=== PATIENT | male | born 1960 | race Caucasian/White ===

== ENCOUNTER 2017-08-07 15:18 | Inpatient (IN) | payer OTHER ==
[~2017-08-07] VITALS: Ht 160 cm; Wt 77.3 kg
[2017-08-07] MEDS ORDERED: NOR10 PO (16:25)
[2017-08-07] MEDS ORDERED: LISI10TA5 PO (16:25)
[2017-08-07 16:26] VITALS: BP_SYST 153
[2017-08-07 17:08] LABS: HEMATOCRIT 44.6 % (36-54); MEAN CORPUSCULAR HEMOGLOBIN 22 pg (27-31); MEAN CORPUSCULAR HGB CONC 31 % (32-36); MEAN CORPUSCULAR VOLUME 71 fL (79.0-98.0); RED BLOOD CELL COUNT(AUTO) 6.32 MIL/uL (4.2-6.2); WHITE BLOOD COUNT (AUTO) 6.2 K/uL (4.8-10.8)
[2017-08-07 17:09] LABS: BASOPHILS # (AUTO) 0.1 K/uL (0.0-0.2); BASOPHILS % (AUTO) 1.7 % (0.0-2.0); EOSINOPHILS # (AUTO) 0.3 K/uL (0.0-0.4); EOSINOPHILS % (AUTO) 4.4 % (0.0-4.0); LYMPHOCYTES # (AUTO) 1.7 K/uL (1.0-5.5); LYMPHOCYTES % (AUTO) 27.1 % (20.5-51.5); MONOCYTES # (AUTO) 0.4 K/uL (0.0-1.0); MONOCYTES % (AUTO) 6.3 % (1.7-9.3); NEUTROPHILS # (AUTO) 3.7 K/uL (1.8-7.7); NEUTROPHILS % (AUTO) 60.5 % (40.0-70.0); PLATELET COUNT (AUTO) 367 K/uL (130-430)
[2017-08-07 17:14] LABS: CALCIUM 10.1 mg/dL (8.4-11.0); CREATININE 1.09 mg/dL (0.55-1.30); POTASSIUM 3.7 mmol/L (3.5-5.1)
[2017-08-07 17:18] LABS: ALBUMIN 2.7 g/dL (3.4-4.8); TOTAL BILIRUBIN 0.3 mg/dL (0.0-1.0)
[2017-08-07] MEDS ORDERED: TEMAZEPAM 15 MG CAPSULE PO PRN (17:30)
[2017-08-07] MEDS ORDERED: ACETAMINOPHEN 325 MG TABLET PO PRN (17:30)
[2017-08-07 18:05] LABS: PROTHROMBIN TIME 9.9 SECS (9.5-12.5)
[2017-08-07] MEDS ORDERED: FUROSEMIDE 20 MG/2 ML VIAL IVP ONE (18:30)
[2017-08-07 18:46] LABS: BILIRUBIN,URINE NEGATIVE (NEGATIVE); BLOOD, URINE 2+ (NEGATIVE); CLARITY/URINE CLEAR (CLEAR); COLOR,URINE YELLOW (YELLOW); GLUCOSE,URINE NEGATIVE (NEGATIVE); KETONES,URINE NEGATIVE (NEGATIVE); LEUKOCYTE ESTERASE ,URINE NEGATIVE (NEGATIVE); NITRITE, URINE NEGATIVE (NEGATIVE); PROTEIN URINE 3+ (NEGATIVE); UROBILINOGEN,URINE 0.2 (0.2-1.0)
[2017-08-07 18:50] VITALS: BP_SYST 151
[2017-08-07 19:11] LABS: BACTERIA,URINE RARE /HPF (None Seen); WBC,URINE 0-3 /HPF (0-3)
[2017-08-07 20:05] VITALS: BP_SYST 138
[2017-08-07] MEDS: POTASSIUM CHLORIDE 20 MEQ TAB.PRT.SR PO SCH (20:36)
[2017-08-07] MEDS: FUROSEMIDE 20 MG/2 ML VIAL IVP SCH (20:37)
[2017-08-07] MEDS: ENOXAPARIN SODIUM 40 MG/0.4 ML SYRINGE SUBCUT SCH (20:39)
[2017-08-07 23:20] VITALS: BP_SYST 141
[2017-08-08 07:11] LABS: CALCIUM 9.8 mg/dL (8.4-11.0); CREATININE 1.17 mg/dL (0.55-1.30); FREE T4 (FREE THYROXINE) 0.9 ng/dL (0.6-1.6); POTASSIUM 3.7 mmol/L (3.5-5.1); THYROID STIMULATING HORMONE 2.38 uIu/mL (0.34-4.82)
[2017-08-08 07:32] VITALS: BP_SYST 146
[2017-08-08 08:04] LABS: BASOPHILS % (AUTO) 0.5 % (0.0-2.0); EOSINOPHILS # (AUTO) 0.3 K/uL (0.0-0.4); EOSINOPHILS % (AUTO) 5.7 % (0.0-4.0); HEMATOCRIT 42.3 % (36-54); LYMPHOCYTES # (AUTO) 2.1 K/uL (1.0-5.5); LYMPHOCYTES % (AUTO) 34.7 % (20.5-51.5); MEAN CORPUSCULAR HEMOGLOBIN 22 pg (27-31); MEAN CORPUSCULAR HGB CONC 31 % (32-36); MEAN CORPUSCULAR VOLUME 71 fL (79.0-98.0); MONOCYTES # (AUTO) 0.6 K/uL (0.0-1.0); MONOCYTES % (AUTO) 10.4 % (1.7-9.3); NEUTROPHILS # (AUTO) 3.1 K/uL (1.8-7.7); NEUTROPHILS % (AUTO) 48.7 % (40.0-70.0); PLATELET COUNT (AUTO) 378 K/uL (130-430); RED BLOOD CELL COUNT(AUTO) 5.97 MIL/uL (4.2-6.2); RED CELL DISTRIBUTION WIDTH 16.2 % (9.0-15.0); WHITE BLOOD COUNT (AUTO) 6.1 K/uL (4.8-10.8)
[2017-08-08] MEDS ORDERED: LISINOPRIL 10 MG TABLET (PRINIVIL) PO SCH (09:00)
[2017-08-08] MEDS ORDERED: amLODIPine BESYLATE 10 MG TABLET PO SCH (09:00)
[2017-08-08] MEDS: POTASSIUM CHLORIDE 20 MEQ TAB.PRT.SR PO SCH ×2 (09:35→20:12)
[2017-08-08] MEDS: FUROSEMIDE 20 MG/2 ML VIAL IVP SCH ×2 (09:35→20:11)
[2017-08-08 12:16] VITALS: BP_SYST 137
[2017-08-08] MEDS: CARVEDILOL 6.25 MG TABLET (COREG) PO SCH ×2 (13:45→20:12)
[2017-08-08] MEDS ORDERED: CARVEDILOL 6.25 MG TABLET (COREG) PO ONE (14:30)
[2017-08-08 16:09] VITALS: BP_SYST 140
[2017-08-08 16:22] VITALS: BP_SYST 140
[2017-08-08] MEDS ORDERED: CARV6.2554 PO (16:29)
[2017-08-08 20:00] VITALS: BP_SYST 138
[2017-08-08] MEDS: ENOXAPARIN SODIUM 40 MG/0.4 ML SYRINGE SUBCUT SCH (20:13)
[2017-08-08 23:17] LABS: BILIRUBIN,URINE NEGATIVE (NEGATIVE); BLOOD, URINE TRACE (NEGATIVE); CLARITY/URINE CLEAR (CLEAR); COLOR,URINE YELLOW (YELLOW); GLUCOSE,URINE NEGATIVE (NEGATIVE); KETONES,URINE NEGATIVE (NEGATIVE); LEUKOCYTE ESTERASE ,URINE NEGATIVE (NEGATIVE); NITRITE, URINE NEGATIVE (NEGATIVE); PROTEIN URINE 3+ (NEGATIVE); UROBILINOGEN,URINE 0.2 (0.2-1.0)
[2017-08-08 23:22] LABS: BACTERIA,URINE FEW /HPF (None Seen); RBC,URINE 0-3 /HPF (0-3)
[2017-08-08 23:23] LABS: HYALINE CASTS, URINE 0-10 /LPF (None Seen)
[2017-08-09 04:07] LABS: HEMOGLOBIN A1C 5.4 % (4.8-5.6)
== END 2017-08-08 23:25 | disposition home or self-care (01) | DRG 292 ==
LOC: SMU 15:18 → STU 16:03
PROVIDERS: ADMIT Internal Medicine; ATTEND Internal Medicine
DX: I13.0 Hypertensive heart and chronic kidney disease with heart failure and stage 1 through stage 4 chronic kidney disease, or unspecified chronic kidney disease (principal); E44.0 Moderate protein-calorie malnutrition; E87.1 Hypo-osmolality and hyponatremia; I50.9 Heart failure, unspecified; I35.1 Nonrheumatic aortic (valve) insufficiency; R80.9 Proteinuria, unspecified; N18.9 Chronic kidney disease, unspecified; N20.0 Calculus of kidney; Z87.442 Personal history of urinary calculi; Z90.49 Acquired absence of other specified parts of digestive tract; Z79.899 Other long term (current) drug therapy; Z88.2 Allergy status to sulfonamides; Z88.1 Allergy status to other antibiotic agents; Z68.30 Body mass index [BMI] 30.0-30.9, adult
CPT/HCPCS: 36415; 71045; 74018; 76770; 80048; 80053; 80061; 81000-TC; 82043; 82306; 82570; 82570-TC; 82607; 83036; 83735-TC; 83880; 84439; 84443-TC; 84484; 85025; 85379; 85610-TC; 93005; 93306; 93970; J1650; J1940

== ENCOUNTER 2017-11-02 16:09 | Outpatient (CLI) | payer OTHER ==
[~2017-11-02 16:09] MED LIST: ALLO300T2 PO; AMLO2.5T2 PO; AMOX-423 PO; CARV6.2554 PO; LISI10TA5 PO; NEPH PO; TRAM50TA92 PO
[2017-11-02 17:07] LABS: BASOPHILS # (AUTO) 0.1 K/uL (0.0-0.2); BASOPHILS % (AUTO) 0.6 % (0.0-2.0); EOSINOPHILS # (AUTO) 0.5 K/uL (0.0-0.4); EOSINOPHILS % (AUTO) 5.1 % (0.0-4.0); HEMATOCRIT 40.5 % (36-54); HEMOGLOBIN 12.8 g/dL (14.0-18.0); LYMPHOCYTES # (AUTO) 2.3 K/uL (1.0-5.5); LYMPHOCYTES % (AUTO) 25.3 % (20.5-51.5); MEAN CORPUSCULAR HEMOGLOBIN 23 pg (27-31); MEAN CORPUSCULAR HGB CONC 32 % (32-36); MEAN CORPUSCULAR VOLUME 73 fL (79.0-98.0); MONOCYTES # (AUTO) 0.6 K/uL (0.0-1.0); MONOCYTES % (AUTO) 7.2 % (1.7-9.3); NEUTROPHILS # (AUTO) 5.4 K/uL (1.8-7.7); NEUTROPHILS % (AUTO) 61.8 % (40.0-70.0); PLATELET COUNT (AUTO) 521 K/uL (130-430); RED BLOOD CELL COUNT(AUTO) 5.55 MIL/uL (4.2-6.2); WHITE BLOOD COUNT (AUTO) 8.9 K/uL (4.8-10.8)
[2017-11-02 17:10] LABS: BILIRUBIN,URINE NEGATIVE (NEGATIVE); BLOOD, URINE 2+ (NEGATIVE); CLARITY/URINE SL HAZY (CLEAR); COLOR,URINE YELLOW (YELLOW); GLUCOSE,URINE NEGATIVE (NEGATIVE); KETONES,URINE NEGATIVE (NEGATIVE); LEUKOCYTE ESTERASE ,URINE NEGATIVE (NEGATIVE); NITRITE, URINE NEGATIVE (NEGATIVE); PROTEIN URINE 3+ (NEGATIVE); UROBILINOGEN,URINE 0.2 (0.2-1.0)
[2017-11-02 17:21] LABS: PROTHROMBIN TIME 9.8 SECS (9.5-12.5)
[2017-11-02 17:25] LABS: ALBUMIN 3.2 g/dL (3.4-4.8); CALCIUM 10.2 mg/dL (8.4-11.0); CREATININE 1.33 mg/dL (0.55-1.30); PHOSPHORUS 2.9 mg/dL (2.7-4.5); POTASSIUM 3.7 mmol/L (3.5-5.1); TOTAL BILIRUBIN 0.3 mg/dL (0.0-1.0)
[2017-11-02 17:36] LABS: BACTERIA,URINE FEW /HPF (None Seen); MUCUS,URINE None Seen /LPF (None Seen); RBC,URINE 0-3 /HPF (0-3); WBC,URINE NONE SEEN /HPF (0-3)
[2017-11-05 00:33] LABS: CREATININE, URINE 119.4 mg/dL
== END 2017-11-02 19:44 | disposition home or self-care (01) ==
LOC: SLB 16:09
PROVIDERS: ATTEND Internal Medicine Nephrology
DX: I35.1 Nonrheumatic aortic (valve) insufficiency (principal); E11.22 Type 2 diabetes mellitus with diabetic chronic kidney disease; I12.9 Hypertensive chronic kidney disease with stage 1 through stage 4 chronic kidney disease, or unspecified chronic kidney disease; N18.9 Chronic kidney disease, unspecified; R80.9 Proteinuria, unspecified; K21.9 Gastro-esophageal reflux disease without esophagitis
CPT/HCPCS: 36415; 80053; 81000-TC; 82043; 82570; 83735-TC; 84100-TC; 84550-TC; 85025; 85610-TC; 85730-TC; 87086

== ENCOUNTER 2017-11-03 14:05 | Outpatient (CLI) | payer OTHER | END 2017-11-03 18:23 | disposition home or self-care (01) | LOC: SLB 14:05 | PROVIDERS: ATTEND Internal Medicine Nephrology | DX: E61.2 Magnesium deficiency (principal); E79.0 Hyperuricemia without signs of inflammatory arthritis and tophaceous disease; R74.8 Abnormal levels of other serum enzymes; E87.1 Hypo-osmolality and hyponatremia; R82.99 Other abnormal findings in urine | CPT/HCPCS: 36415 ==

== ENCOUNTER 2017-12-18 10:15 | Day surgery (SDC) | payer OTHER ==
[2017-12-11 13:44] LABS: BASOPHILS % (AUTO) 0.5 % (0.0-2.0); EOSINOPHILS # (AUTO) 0.4 K/uL (0.0-0.4); EOSINOPHILS % (AUTO) 5.4 % (0.0-4.0); HEMATOCRIT 40.6 % (36-54); HEMOGLOBIN 12.9 g/dL (14.0-18.0); LYMPHOCYTES # (AUTO) 2.3 K/uL (1.0-5.5); LYMPHOCYTES % (AUTO) 28.9 % (20.5-51.5); MEAN CORPUSCULAR HEMOGLOBIN 24 pg (27-31); MEAN CORPUSCULAR HGB CONC 32 % (32-36); MEAN CORPUSCULAR VOLUME 75 fL (79.0-98.0); MONOCYTES # (AUTO) 0.5 K/uL (0.0-1.0); MONOCYTES % (AUTO) 6.3 % (1.7-9.3); NEUTROPHILS # (AUTO) 4.9 K/uL (1.8-7.7); NEUTROPHILS % (AUTO) 58.9 % (40.0-70.0); PLATELET COUNT (AUTO) 388 K/uL (130-430); RED BLOOD CELL COUNT(AUTO) 5.38 MIL/uL (4.2-6.2); RED CELL DISTRIBUTION WIDTH 17.4 % (9.0-15.0); WHITE BLOOD COUNT (AUTO) 8.1 K/uL (4.8-10.8)
[2017-12-11 13:58] LABS: CALCIUM 10.4 mg/dL (8.4-11.0); CREATININE 1.5 mg/dL (0.55-1.30); POTASSIUM 3.7 mmol/L (3.5-5.1)
[2017-12-11 14:02] LABS: PROTHROMBIN TIME 9.9 SECS (9.5-12.5)
[2017-12-11 14:11] LABS: BILIRUBIN,URINE NEGATIVE (NEGATIVE); BLOOD, URINE 1+ (NEGATIVE); CLARITY/URINE CLEAR (CLEAR); COLOR,URINE YELLOW (YELLOW); GLUCOSE,URINE NEGATIVE (NEGATIVE); KETONES,URINE NEGATIVE (NEGATIVE); LEUKOCYTE ESTERASE ,URINE NEGATIVE (NEGATIVE); NITRITE, URINE NEGATIVE (NEGATIVE); PROTEIN URINE 3+ (NEGATIVE); UROBILINOGEN,URINE 0.2 (0.2-1.0)
[2017-12-11 14:49] LABS: BACTERIA,URINE FEW /HPF (None Seen); MUCUS,URINE None Seen /LPF (None Seen); RBC,URINE 0-3 /HPF (0-3); WBC,URINE 0-3 /HPF (0-3)
[~2017-12-18] VITALS: Ht 165.1 cm; Wt 77.1 kg
[~2017-12-18 10:15] MED LIST changes: +CEFTRIAXONE SOD 1 GM/ D5W 50 ML IV ONE
[2017-12-18] MEDS ORDERED: IOHEXOL 50 ML IV ONE (11:49)
[2017-12-18] MEDS ORDERED: SEVOFLURANE 15 MIN GAS INH ONE (12:05)
[2017-12-18] MEDS ORDERED: cefTRIAXone 2 GM VIAL IV ONE (12:05)
[2017-12-18] MEDS ORDERED: NS IRRIG SOLN 5000 ML IR ONE (12:05)
[2017-12-18] MEDS ORDERED: fentaNYL CITRATE/PF 100 MCG/2 ML AMP IVP ONE (12:05)
[2017-12-18] MEDS ORDERED: LR 1,000 ML IV.SOLN IV ONE (12:05)
[2017-12-18] MEDS ORDERED: MIDAZOLAM HCL 5 MG/5 ML VIAL IVP ONE (12:05)
[2017-12-18] MEDS ORDERED: D5W 100 ML IV.SOLN IV ONE (12:05)
[2017-12-18] MEDS ORDERED: ONDANSETRON HCL 4 MG/2 ML VIAL IVP ONE (12:05)
[2017-12-18] MEDS ORDERED: DIPHENHYDRAMINE INJ 50 MG/ML VIAL IVP ONE (12:05)
[2017-12-18] MEDS ORDERED: PROPOFOL 200MG/ 20ML VIAL (DIPRIVAN) IV ONE (12:05)
[2017-12-18] MEDS ORDERED: DEXAMETHASONE SOD PHOSPHATE 4 MG/ML VIAL IVP ONE (12:05)
[2017-12-18] MEDS ORDERED: ROCURONIUM BROMIDE 10 MG/ML (ZEMURON) IV ONE (12:05)
[2017-12-18] MEDS ORDERED: LR 1,000 ML IV SCH (13:23)
[2017-12-18] MEDS ORDERED: MORPHINE 4 MG/ML INJ. SYRINGE IVP PRN ×3 (13:30)
[2017-12-18] MEDS ORDERED: METOCLOPRAMIDE HCL 10 MG/2 ML VIAL IVP PRN (13:30)
[2017-12-18] MEDS ORDERED: MORPHINE 4 MG/ML INJ. SYRINGE ONE (15:23)
[2017-12-18 19:45] VITALS: BP_SYST 133
== END 2017-12-18 16:40 | disposition home or self-care (01) ==
LOC: SDS 10:15 → SMU 10:17 → SDS 16:40
PROVIDERS: ATTEND Urology
DX: N20.0 Calculus of kidney (principal); I12.9 Hypertensive chronic kidney disease with stage 1 through stage 4 chronic kidney disease, or unspecified chronic kidney disease; N18.9 Chronic kidney disease, unspecified; Z90.49 Acquired absence of other specified parts of digestive tract; Z79.899 Other long term (current) drug therapy; Z88.2 Allergy status to sulfonamides; Z88.8 Allergy status to other drugs, medicaments and biological substances
CPT/HCPCS: 36415; 52356; 71046; 76001; 80048; 81000; 85025; 85610; 85730; 93005; J0696 ×2; J1100; J1200; J2250; J2270; J2405; J2704; J3010; J7060; J7120; Q9967

== ENCOUNTER 2017-12-30 13:07 | Outpatient (CLI) | payer OTHER ==
[~2017-12-30 13:07] MED LIST changes: -CEFTRIAXONE SOD 1 GM/ D5W 50 ML IV ONE
== END 2017-12-30 20:57 | disposition home or self-care (01) ==
LOC: SRD 13:07
PROVIDERS: ATTEND Internal Medicine
DX: N20.0 Calculus of kidney (principal)
CPT/HCPCS: 74018

== ENCOUNTER 2018-01-10 05:45 | Day surgery (SDC) | payer OTHER ==
[~2018-01-10] VITALS: Ht 165.1 cm; Wt 73.9 kg
[2018-01-10 06:43] LABS: BILIRUBIN,URINE NEGATIVE (NEGATIVE); BLOOD, URINE 3+ (NEGATIVE); CLARITY/URINE SL HAZY (CLEAR); COLOR,URINE YELLOW (YELLOW); GLUCOSE,URINE NEGATIVE (NEGATIVE); KETONES,URINE NEGATIVE (NEGATIVE); LEUKOCYTE ESTERASE ,URINE 1+ (NEGATIVE); NITRITE, URINE NEGATIVE (NEGATIVE); PH,URINE 5.5 (5.0-8.0); PROTEIN URINE 3+ (NEGATIVE); UROBILINOGEN,URINE 0.2 (0.2-1.0)
[2018-01-10 06:44] LABS: MEAN CORPUSCULAR HEMOGLOBIN 24 pg (27-31)
[2018-01-10 06:46] LABS: CALCIUM 10.5 mg/dL (8.4-11.0); CREATININE 1.62 mg/dL (0.55-1.30); POTASSIUM 4.3 mmol/L (3.5-5.1)
[2018-01-10 06:48] LABS: HEMATOCRIT 41.2 % (36-54); HEMOGLOBIN 12.9 g/dL (14.0-18.0); MEAN CORPUSCULAR HGB CONC 31 % (32-36); MEAN CORPUSCULAR VOLUME 76 fL (79.0-98.0); PLATELET COUNT (AUTO) 370 K/uL (130-430); RED BLOOD CELL COUNT(AUTO) 5.41 MIL/uL (4.2-6.2); RED CELL DISTRIBUTION WIDTH 16.5 % (9.0-15.0); WHITE BLOOD COUNT (AUTO) 7.3 K/uL (4.8-10.8)
[2018-01-10 06:50] LABS: PROTHROMBIN TIME 10.4 SECS (9.5-12.5)
[2018-01-10] MEDS ORDERED: CEFTRIAXONE SOD 1 GM/ DEXTROSE,ISO 50 ML PREMIX IV ONE (07:00)
[2018-01-10] MEDS ORDERED: cefTRIAXone 1 GM IVPB PREMIX 50 ML IV ONE (07:00)
[2018-01-10] MEDS ORDERED: IOHEXOL 50 ML IV ONE (07:07)
[2018-01-10 07:36] LABS: BACTERIA,URINE MODERATE /HPF (None Seen)
[2018-01-10 07:37] LABS: MUCUS,URINE 1+ /LPF (None Seen)
[2018-01-10] MEDS ORDERED: LR 1,000 ML IV SCH (07:50)
[2018-01-10] MEDS ORDERED: MEPERIDINE HCL/PF 25 MG/ML DISP.SYRIN IVP PRN (08:00)
[2018-01-10] MEDS ORDERED: HYDROmorphone 2 MG/ML VIAL IVP PRN ×2 (08:00)
[2018-01-10] MEDS ORDERED: HYDROmorphone 1 MG INJ. 1 MG/ML AMPUL IVP PRN (08:00)
[2018-01-10 08:23] LABS: BAND % (MANUAL) 0 % (0-6); LYMPHOCYTES % (MANUAL) 35 % (20-46)
[2018-01-10 08:24] LABS: ATYPICAL LYMPHOCYTES % 0 % (0-0); BASOPHILS % (MANUAL) 0 % (0-2); EOSINOPHILS % (MANUAL) 4 % (0-7); MONOCYTES % (MANUAL) 7 % (0-11)
[2018-01-10] MEDS ORDERED: SEVOFLURANE 15 MIN GAS INH ONE (09:00)
[2018-01-10] MEDS ORDERED: ROCURONIUM BROMIDE 10 MG/ML (ZEMURON) ONE (09:00)
[2018-01-10] MEDS ORDERED: LR 1,000 ML IV.SOLN IV ONE (09:00)
[2018-01-10] MEDS ORDERED: fentaNYL CITRATE 250 MCG/5 ML AMP ONE (09:00)
[2018-01-10] MEDS ORDERED: PROPOFOL 200MG/ 20ML VIAL (DIPRIVAN) IV ONE (09:00)
[2018-01-10] MEDS ORDERED: MIDAZOLAM HCL 5 MG/ML VIAL (VERSED) IV ONE (09:00)
[2018-01-10] MEDS ORDERED: DEXAMETHASONE SOD PHOSPHATE 4 MG/ML VIAL ONE (09:00)
[2018-01-10] MEDS ORDERED: ONDANSETRON HCL 4 MG/2 ML VIAL ONE (09:00)
[2018-01-10] MEDS ORDERED: KETOROLAC TROMETHAMINE 30 MG VIAL ONE (09:00)
[2018-01-10] MEDS ORDERED: NS 1000 ML IV.SOLN IV ONE (09:00)
[2018-01-10 13:15] VITALS: BP_SYST 123
[2018-01-11] MEDS ORDERED: CEPH-568 PO (19:38)
== END 2018-01-10 12:30 | disposition home or self-care (01) ==
LOC: SDS 05:45
PROVIDERS: ATTEND Urology
DX: N20.0 Calculus of kidney (principal); Z88.2 Allergy status to sulfonamides; Z88.8 Allergy status to other drugs, medicaments and biological substances; I10 Essential (primary) hypertension; I25.10 Atherosclerotic heart disease of native coronary artery without angina pectoris; E66.01 Morbid (severe) obesity due to excess calories
CPT/HCPCS: 36415; 52356; 76000; 80048; 81000; 85007; 85027; 85610; 85730; 87086; C1758; C1769; C2625; J0696; J1100; J1885; J2250; J2405; J2704; J3010; J7030; J7120; Q9967

== ENCOUNTER 2018-01-11 12:46 | Inpatient (IN) | payer OTHER ==
[~2018-01-11] VITALS: Ht 165.1 cm; Wt 73.9 kg
[2018-01-11 12:54] VITALS: BP_SYST 151
--- NOTE | 2018-01-11 12:58 | NUR ---
Pt to bed 5 placed in gown for evaluation
--- NOTE | 2018-01-11 12:58 | NUR ---
Pt c/o inability to urinate since 0800 this AM. Pt states that his bladder is distended, painful, and burning to urethra. Pt s/p lithotripsy to Left kidney yesterday.
[2018-01-11] MEDS ORDERED: fentaNYL CITRATE/PF 100 MCG/2 ML AMP IVP ONE ×2 (13:15→14:00)
[2018-01-11] MEDS ORDERED: ONDANSETRON HCL 4 MG/2 ML VIAL IVP ONE (13:15)
--- NOTE | 2018-01-11 13:15 | NUR ---
Dr. Worrell at bedside.
[2018-01-11 13:40] LABS: BASOPHILS % (AUTO) 0.3 % (0.0-2.0); EOSINOPHILS % (AUTO) 0.1 % (0.0-4.0); HEMATOCRIT 37.8 % (36-54); HEMOGLOBIN 12.1 g/dL (14.0-18.0); LYMPHOCYTES # (AUTO) 1.2 K/uL (1.0-5.5); MEAN CORPUSCULAR HEMOGLOBIN 24 pg (27-31); MEAN CORPUSCULAR HGB CONC 32 % (32-36); MEAN CORPUSCULAR VOLUME 75 fL (79.0-98.0); MONOCYTES # (AUTO) 0.6 K/uL (0.0-1.0); MONOCYTES % (AUTO) 5.4 % (1.7-9.3); NEUTROPHILS % (AUTO) 83.2 % (40.0-70.0); PLATELET COUNT (AUTO) 373 K/uL (130-430); RED BLOOD CELL COUNT(AUTO) 5.06 MIL/uL (4.2-6.2); RED CELL DISTRIBUTION WIDTH 16.3 % (9.0-15.0); WHITE BLOOD COUNT (AUTO) 10.8 K/uL (4.8-10.8)
[2018-01-11 13:56] LABS: CALCIUM 10.4 mg/dL (8.4-11.0); CREATININE 1.86 mg/dL (0.55-1.30); POTASSIUM 4.6 mmol/L (3.5-5.1)
[2018-01-11 14:02] LABS: ALBUMIN 3.7 g/dL (3.4-4.8); TOTAL BILIRUBIN 0.5 mg/dL (0.0-1.0)
[2018-01-11] MEDS ORDERED: LIDOCAINE JELLY 5 ML TUBE ONE (14:09)
[2018-01-11] MEDS ORDERED: LIDOCAINE JELLY 5 ML TUBE MM ONE (14:15)
--- NOTE | 2018-01-11 14:30 | NUR ---
# 16 FR Núñez catheter with use of sterile technique. Immediate return of 900 cc dark tea colored urine noted. Bedside drainage bag placed below level of bladder. Urine sample collected and sent to lab. Pt tolerated procedure fair.
[2018-01-11 14:46] LABS: BILIRUBIN,URINE NEGATIVE (NEGATIVE); BLOOD, URINE 3+ (NEGATIVE); CLARITY/URINE SL CLOUDY (CLEAR); COLOR,URINE BROWN (YELLOW); GLUCOSE,URINE NEGATIVE (NEGATIVE); KETONES,URINE TRACE (NEGATIVE); LEUKOCYTE ESTERASE ,URINE 2+ (NEGATIVE); NITRITE, URINE POSITIVE (NEGATIVE); PH,URINE 6.5 (5.0-8.0); PROTEIN URINE 3+ (NEGATIVE)
--- NOTE | 2018-01-11 15:00 | NUR ---
Pt AAOX4, verbalizes improvement in pain level since F/C placed. Rafael Pena tinged urine noted to F/C tubing with approx 1100 mL total to collection bag. Family member at bedside. No needs verbalized at this time.
[2018-01-11 15:03] LABS: BACTERIA,URINE FEW /HPF (None Seen); RBC,URINE >100 /HPF (0-3)
[2018-01-11 15:04] LABS: MUCUS,URINE None Seen /LPF (None Seen); YEAST,URINE None Seen /HPF (None Seen)
[2018-01-11] MEDS ORDERED: cefTRIAXone 1 GM in D5W 50 ML IV ONE (15:30)
[2018-01-11] MEDS ORDERED: MORPHINE 2 MG/ML INJ. SYRINGE IVP PRN (15:45)
[2018-01-11] MEDS ORDERED: MORPHINE 4 MG/ML INJ. SYRINGE IVP PRN (15:45)
[2018-01-11] MEDS ORDERED: ACETAMINOPHEN 325 MG TABLET PO PRN (15:45)
[2018-01-11] MEDS ORDERED: ONDANSETRON HCL 4 MG/2 ML VIAL IVP PRN (15:45)
--- NOTE | 2018-01-11 15:45 | NUR ---
No needs verbalized at this time.
[2018-01-11] MEDS ORDERED: cefTRIAXone 1 GM VIAL ONE ×2 (15:54→22:49)
--- NOTE | 2018-01-11 16:20 | NUR ---
Patient will be admitted to care of Dr. Ray. Admitted to Tele unit. Will go to room 127A. Belongings list completed. Summary report printed. Report will be given at bedside.
--- NOTE | 2018-01-11 16:25 | NUR ---
Admission Note Received patient from ER with diagnosis of hematuria and hyponatremia. Initial Plan of Care discussed-patient verbalized understanding. Family at bedside. Oriented to room, call light, pain management and safety.
--- NOTE | 2018-01-11 16:34 | NUR ---
CONSULTATION PAGED/CALLED Reason for Consultation: [] HEMATURIA Person Who was Notified: [] KOBE Consulting Physician: [] DR Sejal TENORIO Top Polisher Specialty: [] UROLOGY Ordering Physician: [] DR Radha SINGH
[2018-01-11 16:36] VITALS: BP_SYST 145
--- NOTE | 2018-01-11 17:00 | NUR ---
Patient received a/ox4, denies pain, assessment complete, patient on room air, abdomen is distended but soft, pelvic area soft but also distended, last BM yesterday 01/10/18, Núñez Catheter in place, draining to gravity, red bloody urine, no clots noted, emptied 2600ml at this time, IV line is patent, no s/s of infiltration, educated the patient on plan of care and call light system and to call for any assistance, patient verbalized understanding, call light placed within reach, fall and aspiration precautions in place, bed in lowest position, continuing to monitor.
--- NOTE | 2018-01-11 18:19 | NUR ---
Closing note patient resting in bed, awake, eating dinner, all needs met, will endorse report to NOC shift nurse, bed in lowest position, two side rails up, call light within reach, fall and aspiration precautions in place.
[2018-01-11] MEDS ORDERED: CEPH-568 PO (19:38)
--- NOTE | 2018-01-11 20:15 | NUR ---
OPENING SHIFT NOTE patient is alert oriented x4. IV on left antecubital, 22G, flushed with NS, no infiltration noted. patient denies pain or shortness of breath. plan of care discussed, advised patient to call PRN. will continue to monitor. Addendum: 01/11/18 at 2347 by Alma Lee RN IV 20G
[2018-01-11 20:33] VITALS: BP_SYST 123; BP_SYST 139
[2018-01-11] MEDS ORDERED: FUROSEMIDE 20 MG/2 ML VIAL IVP ONE (21:30)
--- NOTE | 2018-01-11 21:30 | NUR ---
TO SEE PATIENT Dr. Ray at bedside assessing patient. emptied 850ml of urine from ward catheter, patient denies pain. will continue to monitor
[2018-01-11] MEDS ORDERED: VANCOMYCIN HCL 1 GM/NS PREMIX 250 ML IV ONE (22:00)
[2018-01-11] MEDS ORDERED: VANCOMYCIN HCL 1000 MG/VIAL IV ONE ×2 (22:49→22:50)
[2018-01-11] MEDS: cefTRIAXone 1 GM in D5W 50 ML IV SCH (23:08)
--- NOTE | 2018-01-11 23:46 | NUR ---
REFUSAL patient refusing Lasix, attempted to explain to patient indication for lasix, patient states that he does not need it. will continue to monitor.
[2018-01-12 00:32] VITALS: BP_SYST 138
--- NOTE | 2018-01-12 02:15 | NUR ---
ROUNDS patient sleeping in bed, breathing even and unlabored. will continue to monitor. call light within reach.
--- NOTE | 2018-01-12 04:01 | NUR ---
ROUNDS patient awake, denies pain or shortness of breath. Núñez catheter still draining bloody urine. will continue to monitor.
--- NOTE | 2018-01-12 05:28 | NUR ---
ROUNDS patient awake, denies pain or shortness of breath. emptied 575ml of bloody urine from ward catheter. will continue to monitor.
[2018-01-12 06:48] LABS: PROTHROMBIN TIME 9.8 SECS (9.5-12.5)
[2018-01-12 06:59] LABS: BASOPHILS % (AUTO) 0.5 % (0.0-2.0); EOSINOPHILS # (AUTO) 0.1 K/uL (0.0-0.4); EOSINOPHILS % (AUTO) 0.9 % (0.0-4.0); HEMATOCRIT 36.1 % (36-54); HEMOGLOBIN 11.7 g/dL (14.0-18.0); LYMPHOCYTES # (AUTO) 1.8 K/uL (1.0-5.5); LYMPHOCYTES % (AUTO) 22.5 % (20.5-51.5); MEAN CORPUSCULAR HEMOGLOBIN 24 pg (27-31); MEAN CORPUSCULAR HGB CONC 32 % (32-36); MEAN CORPUSCULAR VOLUME 75 fL (79.0-98.0); MONOCYTES # (AUTO) 0.7 K/uL (0.0-1.0); MONOCYTES % (AUTO) 8.7 % (1.7-9.3); NEUTROPHILS # (AUTO) 5.3 K/uL (1.8-7.7); NEUTROPHILS % (AUTO) 67.4 % (40.0-70.0); PLATELET COUNT (AUTO) 301 K/uL (130-430); RED BLOOD CELL COUNT(AUTO) 4.82 MIL/uL (4.2-6.2); RED CELL DISTRIBUTION WIDTH 16.3 % (9.0-15.0); WHITE BLOOD COUNT (AUTO) 7.9 K/uL (4.8-10.8)
[2018-01-12 07:01] LABS: ALBUMIN 3.1 g/dL (3.4-4.8); CREATININE 1.67 mg/dL (0.55-1.30); POTASSIUM 4.7 mmol/L (3.5-5.1); TOTAL BILIRUBIN 0.3 mg/dL (0.0-1.0); URIC ACID 4.1 mg/dL (2.4-7.0)
--- NOTE | 2018-01-12 07:26 | NUR ---
END OF SHIFT care endorsed to dayshift RN. no distress noted with patient.
--- NOTE | 2018-01-12 07:53 | NUR ---
INITIAL NOTE RECEIVED PT IN BED, NO S/S OF DISTRESS OR SOB NOTED, NO C/O PAIN WHEN ASKED, PT AAOX4, VERBAL. IV CATHETER PATENT, NO SIGNS OF INFECTION OR INFILTRATION NOTED, SALINE LOCK. PT HAS BILATERAL SCD'S. BED AT LOWEST POSITION, CALL LIGHT WITHIN REACH, WILL CONTINUE TO MONITOR PT FOR ANY CHANGES, FALL AND SAFETY PRECAUTIONS IN PLACE, BED ALARM ON. PT HAS BILATERAL SCD'S IN PLACE. Addendum: 01/12/18 at 0756 by Porsha Abrams RN F/C DRAINING VIA GRAVITY, DRAINING URINE WITH BLOOD IN IT, COLOR RESEMBLES CRANBERRY JUICE, NO CLOTS NOTED.
[2018-01-12 08:37] VITALS: BP_SYST 123
[2018-01-12] MEDS: FUROSEMIDE 20 MG/2 ML VIAL IVP SCH ×2 (08:38→21:16)
[2018-01-12] MEDS: CEPHALEXIN 500 MG CAPSULE PO SCH ×3 (08:45→21:16)
[2018-01-12] MEDS: NEPHROVITE, (FOLIC ACID/VITAMIN B COMP W-C 1 TAB) PO SCH (08:45)
[2018-01-12] MEDS: amLODIPine BESYLATE 5 MG TABLET PO SCH (08:46)
[2018-01-12] MEDS ORDERED: LISINOPRIL 20 MG TABLET PO SCH (09:00)
[2018-01-12] MEDS ORDERED: LISINOPRIL 10 MG TABLET (PRINIVIL) PO SCH (09:00)
--- NOTE | 2018-01-12 10:20 | NUR ---
ROUNDS PT IN BED, NO S/S OF DISTRESS OR SOB NOTED, PT HAS NO C/O PAIN AT THIS TIME, PT IN STABLE CONDITION, PT RESTING COMFORTABLY, PT TALKING TO AT BEDSIDE.
--- NOTE | 2018-01-12 11:20 | NUR ---
CONSULTATION CALLED REASON FOR CONSULTATION:CHF WAS CONSULT CALLED?Y PERSON WHO WAS NOTIFIED:ANNIE CONSULTING PHYSICIAN:CARLO ANTHONY SLAG WHEELER PHONE NUMBER:[phone] ORDERING PHYSICIAN:DR.HAKAKCOUNT INCLUDES THE [facility]
[2018-01-12 11:54] VITALS: BP_SYST 122
--- NOTE | 2018-01-12 14:22 | NUR ---
ROUNDS PT IN BED, NO S/S OF DISTRESS OR SOB NOTED, PT HAS NO FACIAL GRIMACING NOTED FOR PAIN, PT IN STABLE CONDITION, PT RESTING COMFORTABLY.
[2018-01-12 16:28] VITALS: BP_SYST 132
--- NOTE | 2018-01-12 16:33 | NUR ---
CONSULTATION FOLLOW-UP REASON FOR CONSULTATION:HEMATURIA WAS CONSULT CALLED?Y PERSON WHO WAS NOTIFIED:AUDELIA CONSULTING PHYSICIAN:MORENA KHALIL PATIENT CARE PROVIDER SPECIALTY:UROLOGY PATIENT CARE PROVIDER PHONE NUMBER:[phone] ORDERING PHYSICIAN:BREE SPEARS
--- NOTE | 2018-01-12 16:55 | NUR ---
ROUNDS PT IN BED, NO S/S OF DISTRESS OR SOB NOTED, PT HAS NO FACIAL GRIMACING NOTED FOR PAIN, PT IN STABLE CONDITION, PT RESTING COMFORTABLY.
--- NOTE | 2018-01-12 17:05 | NUR ---
MD ROUNDS DR TENORIO HERE ROUNDING, AWARE OF PATIENT'S CONDITION.
[2018-01-12] MEDS ORDERED: TAMSULOSIN HCL 0.4 MG CAP PO SCH ×2 (17:45→23:00)
--- NOTE | 2018-01-12 18:33 | NUR ---
CLOSING NOTE PT IN BED, NO S/S OF DISTRESS OR SOB NOTED, NO C/O PAIN WHEN ASKED, PT AAOX4, VERBAL. IV CATHETER PATENT, NO SIGNS OF INFECTION OR INFILTRATION NOTED, SALINE LOCK. PT HAS BILATERAL SCD'S. BED AT LOWEST POSITION, CALL LIGHT WITHIN REACH, WILL ENDORSE CARE OF PT TO INCOMING NURSE, FALL AND SAFETY PRECAUTIONS IN PLACE, BED ALARM ON. PT HAS BILATERAL SCD'S IN PLACE. F/C DRAINING VIA GRAVITY, DRAINING URINE WITH BLOOD IN IT, COLOR RESEMBLES CRANBERRY JUICE, NO CLOTS NOTED.
--- NOTE | 2018-01-12 19:25 | NUR ---
Opening Notes Received patient in bed resting comfortably with at the bedside. Patient is AOx4 and able to verbalize needs. Patient is ambulatory with steady gait. Bed alarm refused and was educated on the risk and benefits of its use. Núñez in place draining by gravity red urine in color. Patient state no pain. IV on the Left AC 20 s/L intact with no s/s of infiltration or infection. Oriented the patient to the room and use of the call light. Will monitor the patient for any change of condition. Safety precaution in place and bed in low position.
[2018-01-12 20:00] VITALS: BP_SYST 145
[2018-01-12] MEDS: ALLOPURINOL 300 MG TABLET (ZYLOPRIM) PO SCH (21:00)
[2018-01-12] MEDS ORDERED: ALLOPURINOL 300 MG TABLET (ZYLOPRIM) PO SCH (21:00)
[2018-01-12] MEDS: cefTRIAXone 1 GM in D5W 50 ML IV SCH (21:16)
--- NOTE | 2018-01-12 22:25 | NUR ---
[facility] Spoke with Abi regarding floMax medication. Will give 1 time order tonight and edit previous order to start scheduled tomorrow at 0900 01/13/18.
[2018-01-13] VITALS: BP_SYST 152
--- NOTE | 2018-01-13 00:25 | NUR ---
Patient requesting for privacy to sleep. No appearance of pain or respiratory distress.
--- NOTE | 2018-01-13 02:05 | NUR ---
In bed asleep. No respiratory distress noted. Call light within reach.
--- NOTE | 2018-01-13 04:38 | NUR ---
Patient in bed resting. Núñez bag emptied by FRONT TENDER and recorded output. Urine color is blood tinged. Patient has no pain or sob. Will cont to monitor.
[2018-01-13 06:23] LABS: BASOPHILS # (AUTO) 0.1 K/uL (0.0-0.2); BASOPHILS % (AUTO) 0.7 % (0.0-2.0); EOSINOPHILS # (AUTO) 0.3 K/uL (0.0-0.4); EOSINOPHILS % (AUTO) 4.1 % (0.0-4.0); HEMATOCRIT 38.4 % (36-54); HEMOGLOBIN 12.2 g/dL (14.0-18.0); LYMPHOCYTES # (AUTO) 2.5 K/uL (1.0-5.5); LYMPHOCYTES % (AUTO) 34.5 % (20.5-51.5); MEAN CORPUSCULAR HEMOGLOBIN 24 pg (27-31); MEAN CORPUSCULAR HGB CONC 32 % (32-36); MEAN CORPUSCULAR VOLUME 76 fL (79.0-98.0); MONOCYTES # (AUTO) 0.7 K/uL (0.0-1.0); MONOCYTES % (AUTO) 10.1 % (1.7-9.3); NEUTROPHILS # (AUTO) 3.7 K/uL (1.8-7.7); NEUTROPHILS % (AUTO) 50.6 % (40.0-70.0); PLATELET COUNT (AUTO) 316 K/uL (130-430); RED BLOOD CELL COUNT(AUTO) 5.07 MIL/uL (4.2-6.2); RED CELL DISTRIBUTION WIDTH 16.9 % (9.0-15.0); WHITE BLOOD COUNT (AUTO) 7.3 K/uL (4.8-10.8)
[2018-01-13 06:39] LABS: CALCIUM 9.9 mg/dL (8.4-11.0); CREATININE 1.88 mg/dL (0.55-1.30); POTASSIUM 3.9 mmol/L (3.5-5.1); TOTAL BILIRUBIN 0.2 mg/dL (0.0-1.0)
--- NOTE | 2018-01-13 06:55 | NUR ---
Closing notes Patient in bed resting. Núñez draining by gravity red tinged urine. No complaints of pain or sob. All needs have been met and will endorse to day shift nurse. Bed alarm refused.
[2018-01-13 08:00] VITALS: BP_SYST 133
--- NOTE | 2018-01-13 08:00 | NUR ---
Opening Note received report from restaurant shift supervisor RN, pt resting in bed, A&Ox4, respirations even and unlabored, pt denies any pain or shortness of breath, IV site clean, dry, and intact, ward catheter draining to gravity, 850ml of clear red urine emptied at this time, pt educated on use of call light and asked to call for assistance, pt verbalized understanding, call light in reach, pt educated on use of bed alarm for pt safety, pt refusing bed alarm at this time, bed in low position, fall and aspiration precautions in place.
[2018-01-13] MEDS ORDERED: LISINOPRIL 10 MG TABLET (PRINIVIL) PO SCH (09:00)
[2018-01-13] MEDS: amLODIPine BESYLATE 5 MG TABLET PO SCH (09:14)
[2018-01-13] MEDS: CEPHALEXIN 500 MG CAPSULE PO SCH (09:14)
[2018-01-13] MEDS: NEPHROVITE, (FOLIC ACID/VITAMIN B COMP W-C 1 TAB) PO SCH (09:14)
[2018-01-13] MEDS: TAMSULOSIN HCL 0.4 MG CAP PO SCH (09:14)
[2018-01-13] MEDS: FUROSEMIDE 20 MG/2 ML VIAL IVP SCH (09:15)
--- NOTE | 2018-01-13 09:21 | NUR ---
Medication pt and spouse educated on medication use and side effects, pt and spouse verbalized understanding, tolerated medication administration well, fresh water provided, fall and aspiration precautions in place.
--- NOTE | 2018-01-13 10:55 | NUR ---
RN Rounds pt resting in bed, respirations even and unlabored, pt denies any pain at this time, SCDs in place, no additional needs, fall and aspiration precautions in place.
[2018-01-13 11:27] VITALS: BP_SYST 116
--- NOTE | 2018-01-13 12:07 | NUR ---
RN Rounds pt resting in bed, respirations even and unlabored on room air, pt provided with fresh water, no additional needs at this time, fall and aspiration precautions in place.
--- NOTE | 2018-01-13 13:10 | NUR ---
MD Rounds Rounds with Dr. Flor MD at bedside examining pt, MD made aware of AM labs, sodium 126, BUN 28, creatinine 1.88, MD aware of red colored urine in ward catheter, orders to strain urine for renal calculi.
--- NOTE | 2018-01-13 13:31 | NUR ---
Nephro consult called: for Dr. Echavarria, regarding hyponatremia and leandro, ordered by Dr. Ray, spoke with Sydni. Addendum: 01/13/18 at 1333 by Kavon Carbajal [place]/ Consult originally for Dr. Vergara, but Dr. Echavarria is client operations manager.
--- NOTE | 2018-01-13 13:52 | NUR ---
Rounds Dr. Echavarria at bedside examining pt.
--- NOTE | 2018-01-13 14:50 | NUR ---
RN Rounds pt resting in bed, spouse at bedside, denies any pain at this time, respirations even and unlabored on room air, no acute distress noted, no additional needs, fall and aspiration precautions in place.
--- NOTE | 2018-01-13 16:15 | NUR ---
RN Rounds pt resting in bed, respirations even and unlabored, no acute distress noted, no additional needs at this time, fall and aspiration precautions in place.
[2018-01-13 16:20] VITALS: BP_SYST 116
--- NOTE | 2018-01-13 18:53 | NUR ---
Closing Note pt resting in bed, A&Ox4, respirations even and unlabored on room air, pt reports pain is controlled at this time, IV site clean, dry, and intact, SCDs in place, ward catheter draining to gravity, pt educated on use of call light and asked to call for assistance, pt verbalized understanding, call light in reach, pt educated on use of bed alarm for pt safety, pt refusing bed alarm at this time, bed in low position, fall and aspiration precautions in place, will endorse care to night manager RN.
--- NOTE | 2018-01-13 19:15 | NUR ---
Opening Notes Received the patient in bed resting comfortably. AAOx4 and able to verbalize needs. Núñez catheter draining by gravity thiago color urine. Lungs and heart sounds wnl. No pain or respiratory distress. IV on the left AC 20g s/l clean and intact with no s/s. Oriented the patient to the room and use of the call light. Bed alarm refused and patient acknowledges understanding of the risk and benefits.
[2018-01-13 20:00] VITALS: BP_SYST 114
[2018-01-13] MEDS: ALLOPURINOL 300 MG TABLET (ZYLOPRIM) PO SCH (20:53)
[2018-01-13] MEDS: cefTRIAXone 1 GM in D5W 50 ML IV SCH (20:54)
[2018-01-13] MEDS: CARVEDILOL 6.25 MG TABLET (COREG) PO SCH (20:55)
--- NOTE | 2018-01-13 22:02 | NUR ---
Patient in bed resting with no complaints of pain or sob. Will continue to monitor for any changes.
[2018-01-14] VITALS: BP_SYST 132
--- NOTE | 2018-01-14 00:35 | NUR ---
Patient in bed resting. No respiratory distress or pain at this time. Call light within reach. Will continue to monitor for any change of condition.
--- NOTE | 2018-01-14 02:25 | NUR ---
Patient in bed asleep. no pain or respiratory distress. Núñez draining blood tinge at this time. Will cont to monitor.
--- NOTE | 2018-01-14 04:20 | NUR ---
Patient awake requesting water. Patient states no distress or no flank pain.
[2018-01-14 06:29] LABS: BASOPHILS % (AUTO) 0.4 % (0.0-2.0); EOSINOPHILS # (AUTO) 0.4 K/uL (0.0-0.4); EOSINOPHILS % (AUTO) 4.8 % (0.0-4.0); HEMATOCRIT 36.6 % (36-54); HEMOGLOBIN 11.9 g/dL (14.0-18.0); LYMPHOCYTES # (AUTO) 2.2 K/uL (1.0-5.5); LYMPHOCYTES % (AUTO) 24.6 % (20.5-51.5); MEAN CORPUSCULAR HEMOGLOBIN 24 pg (27-31); MEAN CORPUSCULAR HGB CONC 33 % (32-36); MEAN CORPUSCULAR VOLUME 74 fL (79.0-98.0); MONOCYTES # (AUTO) 0.9 K/uL (0.0-1.0); MONOCYTES % (AUTO) 10.3 % (1.7-9.3); NEUTROPHILS # (AUTO) 5.3 K/uL (1.8-7.7); NEUTROPHILS % (AUTO) 59.9 % (40.0-70.0); PLATELET COUNT (AUTO) 331 K/uL (130-430); RED BLOOD CELL COUNT(AUTO) 4.95 MIL/uL (4.2-6.2); RED CELL DISTRIBUTION WIDTH 16.7 % (9.0-15.0); WHITE BLOOD COUNT (AUTO) 8.8 K/uL (4.8-10.8)
--- NOTE | 2018-01-14 06:39 | NUR ---
Closing Notes Patient in bed resting. AAOx4. Patient states no pain or respiratory distress. Núñez still blood tinged. All needs have been met. Will endorse to the oncoming nurse.
[2018-01-14 06:47] LABS: CALCIUM 9.8 mg/dL (8.4-11.0); CREATININE 1.9 mg/dL (0.55-1.30); POTASSIUM 3.8 mmol/L (3.5-5.1)
--- NOTE | 2018-01-14 07:22 | NUR ---
Opening Note Patient A/ox3. No complaints of pain or difficulty breathing on room air. Extensions of RN, POULTRY SEXER and dispatcher chief coal slurry written on white board. Plan of care written on white board. Safety precautions in order, call light in reach and bed alarm on.
[2018-01-14] MEDS: NEPHROVITE, (FOLIC ACID/VITAMIN B COMP W-C 1 TAB) PO SCH (08:10)
[2018-01-14] MEDS: TAMSULOSIN HCL 0.4 MG CAP PO SCH (08:10)
[2018-01-14] MEDS: CARVEDILOL 6.25 MG TABLET (COREG) PO SCH ×2 (08:10→20:33)
--- NOTE | 2018-01-14 08:40 | NUR ---
Urine Strained 460ml of blood-tinged urine emptied via ward catheter. No stones noted.
[2018-01-14 08:45] VITALS: BP_SYST 144
--- NOTE | 2018-01-14 10:27 | NUR ---
Rounds Patient sleeping at this time. No signs of distress or discomfort.
[2018-01-14 12:00] VITALS: BP_SYST 139
--- NOTE | 2018-01-14 12:05 | NUR ---
Rounds Patient educated on medication Coreg. Patient confused on why he has to take Coreg instead of lisinopril, since he takes lisinopril at home. RN updated patient on plan of care and reasoning behind medication changes. Patient verbalized understanding and states he is willing to take medication on night court magistrate.
--- NOTE | 2018-01-14 14:10 | NUR ---
PATIENT RESTING: Patient resting quietly. No acute distress noted. Vital signs within normal range.
--- NOTE | 2018-01-14 16:20 | NUR ---
Dr Flor bernard States he will place patient on sodium chloride tablets with meals, Sodium chloride IV fluids, simethicone and thera-gran multivitamins.
[2018-01-14] MEDS ORDERED: METOCLOPRAMIDE HCL 10 MG TABLET PO PRN (16:45)
[2018-01-14] MEDS ORDERED: SIMETHICONE 80 MG TAB.CHEW PO ONE (16:45)
[2018-01-14 16:52] VITALS: BP_SYST 132
[2018-01-14] MEDS ORDERED: MULTIVITS,CA,MINERALS/IRON/FA 1 TABLET PO ONE (17:00)
[2018-01-14] MEDS: SODIUM CHLORIDE 500 MG TABLET PO SCH (17:30)
[2018-01-14] MEDS: NACL 0.9% 1,000 ML IV SCH (17:31)
--- NOTE | 2018-01-14 18:35 | NUR ---
Closing Note Patient a/oX3, laying down in bed. at bedside. No complaints of pain or difficulty breathing on room air. Núñez Catheter draining to gravity. All needs met throughout shift. Will endorse plan of care to noc shift. Safety precautions in order, call light in reach and bed alarm refused by patient.
[2018-01-14 19:15] VITALS: BP_SYST 142
--- NOTE | 2018-01-14 19:15 | NUR ---
Initial Notes Received patient in bed watching tv with at bedside . No c/o pain and no distress noted at this time. IV noted to L a/c g 20 no infiltrate and with good blood return. All extremities are strong , ambulate with assist. Discuss plan of care with patient and verbalize understanding. Bed in low position,alarm on, and call light in reach. Will cont to monitor.
[2018-01-14] MEDS: ALLOPURINOL 300 MG TABLET (ZYLOPRIM) PO SCH (20:33)
[2018-01-14] MEDS: cefTRIAXone 1 GM in D5W 50 ML IV SCH (20:33)
[2018-01-14] MEDS: SIMETHICONE 80 MG TAB.CHEW PO SCH (20:33)
--- NOTE | 2018-01-14 21:15 | NUR ---
Rounds Patient is resting at this time. No s/s of any distress and no c/o pain noted. Call light in reach, will cont to monitor.
--- NOTE | 2018-01-14 23:15 | NUR ---
Rounds Assisted to bathroom and safely back to bed. No s/s of any distress noted. Call light in reach, will cont to monitor.
[2018-01-15] VITALS: BP_SYST 124
--- NOTE | 2018-01-15 01:15 | NUR ---
Rounds Empty ward cath bag. Light red urine noted. No s/s of any distress noted. Call light in reach, will cont to monitor.
--- NOTE | 2018-01-15 03:15 | NUR ---
Rounds Patient is resting but easily awaken by verbal stimuli. No c/o pain and no s/s of any distress noted. Call light in reach, will cont to monitor.
[2018-01-15 07:17] LABS: BASOPHILS # (AUTO) 0.1 K/uL (0.0-0.2); BASOPHILS % (AUTO) 0.7 % (0.0-2.0); EOSINOPHILS # (AUTO) 0.5 K/uL (0.0-0.4); EOSINOPHILS % (AUTO) 6.4 % (0.0-4.0); HEMATOCRIT 34.8 % (36-54); HEMOGLOBIN 11.1 g/dL (14.0-18.0); LYMPHOCYTES # (AUTO) 2.4 K/uL (1.0-5.5); MEAN CORPUSCULAR HEMOGLOBIN 24 pg (27-31); MEAN CORPUSCULAR HGB CONC 32 % (32-36); MEAN CORPUSCULAR VOLUME 74 fL (79.0-98.0); MONOCYTES # (AUTO) 0.7 K/uL (0.0-1.0); MONOCYTES % (AUTO) 9.5 % (1.7-9.3); NEUTROPHILS # (AUTO) 4.1 K/uL (1.8-7.7); NEUTROPHILS % (AUTO) 52.4 % (40.0-70.0); PLATELET COUNT (AUTO) 341 K/uL (130-430); RED CELL DISTRIBUTION WIDTH 16.6 % (9.0-15.0); WHITE BLOOD COUNT (AUTO) 7.8 K/uL (4.8-10.8)
[2018-01-15 07:23] LABS: ALBUMIN 2.7 g/dL (3.4-4.8); CALCIUM 9.7 mg/dL (8.4-11.0); CREATININE 1.67 mg/dL (0.55-1.30); POTASSIUM 3.9 mmol/L (3.5-5.1); TOTAL BILIRUBIN 0.2 mg/dL (0.0-1.0)
--- NOTE | 2018-01-15 08:00 | NUR ---
OPENING NOTES. RECEIVED PT IN BED, PT IS AAOX4 DENIES PAIN, NO SOB, NO DISTRESS. PT IS AFEBRILE. IV ACCESS ON THE L FA, INTACT AND PATENT. PT IS DISCONNECTED FROM IV FLUIDS AT THIS TIME AND REFUSED TO BE CONNECTED BACK TO IV FLUIDS. SAFETY PRECAUTION IN PLACE. BED IN LOW POSITION. CALL LIGHT IN REACH. WILL CONT TO MONITOR.
[2018-01-15 08:02] VITALS: BP_SYST 126
[2018-01-15] MEDS: SODIUM CHLORIDE 500 MG TABLET PO SCH ×3 (08:21→17:42)
[2018-01-15] MEDS: MULTIVITS,CA,MINERALS/IRON/FA 1 TABLET PO SCH (08:22)
[2018-01-15] MEDS: TAMSULOSIN HCL 0.4 MG CAP PO SCH ×2 (08:22→20:58)
[2018-01-15] MEDS: CARVEDILOL 6.25 MG TABLET (COREG) PO SCH ×2 (08:22→20:58)
[2018-01-15] MEDS: NEPHROVITE, (FOLIC ACID/VITAMIN B COMP W-C 1 TAB) PO SCH (08:22)
[2018-01-15] MEDS: SIMETHICONE 80 MG TAB.CHEW PO SCH ×3 (08:22→20:57)
--- NOTE | 2018-01-15 10:30 | NUR ---
PT SITTING ON THE CHAIR. FAMILY AT BEDSIDE. NO C/O PAIN, NO RESP DISTRESS. REGALADO CATH DRAINING WITH PINKISH URINE. ENCOURAGED TO CALL FOR ASSIST AND PAIN MED. WILL CONT TO MONITOR.
[2018-01-15 11:14] VITALS: BP_SYST 126
[2018-01-15] MEDS: NACL 0.9% 1,000 ML IV SCH (12:45)
[2018-01-15 13:00] VITALS: BP_SYST 133
[2018-01-15] MEDS: traMADol HCL HCL 50 MG TABLET (ULTRAM) PO SCH (13:16)
--- NOTE | 2018-01-15 13:20 | NUR ---
PT IN BED, FAMILY AT BEDSIDE. REGALADO CATH DRAINAGE IS PINKISH AGAIN. PT GIVEN ULTRAM FOR PAIN IN THE PENIS. WILL CONT TO MONITOR.
[2018-01-15 16:19] VITALS: BP_SYST 121
--- NOTE | 2018-01-15 16:21 | NUR ---
1600 ML OF URINE DRAINED FROM REGALADO CATH, IT WS LIGHT PINK. URINE PASSED THRU STRAINER. NO KIDNEY STONE COLLECTED THIS AM AND THIS PM. PT STILL REFUSED TO BE CONNECTED TO IV FLUIDS.
--- NOTE | 2018-01-15 19:52 | NUR ---
CLOSING NOTES, PT HAS BEEN STABLE THE WHOLE SHIFT, PT GIVEN PAIN MED 1X, REFUSED IV FLUIDS, PT DRINKING A LOT OF WATER. REGALADO INTACT AND PATENT. DRAINAGE STILL PINKISH AT THIS TIME. ENDORSED TO NIGHT JUVENTINO.
[2018-01-15 20:14] VITALS: BP_SYST 127
[2018-01-15] MEDS: cefTRIAXone 1 GM in D5W 50 ML IV SCH (20:57)
[2018-01-15] MEDS: ALLOPURINOL 300 MG TABLET (ZYLOPRIM) PO SCH (20:58)
--- NOTE | 2018-01-15 21:12 | NUR ---
PATIENT AWAKE ALERT SITTING UP IN BED TALKING ON CELL PHONE , FAMILY MEMBERS @ THE BEDSIDE ON ROOM AIR 02 SAT 96 % RESPIRATIONS REGULAR ALSO UNLABORED SCD & FALL MEASURES IN PLACE .
--- NOTE | 2018-01-15 21:30 | NUR ---
ROCEPHIN 1 GM IVPB ADMINISTER ORDERED , NO ITCHING OR COMPLAINTS MADE NO ALLERGIC REACTION .
--- NOTE | 2018-01-15 21:53 | NUR ---
Patient REFUSING IVF , DR SINGH is updated & aware .
[2018-01-16 01:00] VITALS: BP_SYST 135
--- NOTE | 2018-01-16 02:28 | NUR ---
HOURLY ROUNDING PATIENT RESTING HOB ELEVATED , IS VERBALLY RESPONSIVE CALL LONG WITH PATIENT .
--- NOTE | 2018-01-16 03:05 | NUR ---
STRAINING URINE FROM REGALADO CATHETER , FOR STONES , NO STONES NOTED CONTINUE TO MONITOR .
--- NOTE | 2018-01-16 05:33 | NUR ---
PATIENT RESTING THIS HOUR , REGALADO CATHETER FOR URINE PATENT FREE FLOW OF ARNALDO YELLOW URINE NOTED TO BSDB , NO STONES NOTED THIS HOUR / .
[2018-01-16 06:52] LABS: ALBUMIN 2.8 g/dL (3.4-4.8); CREATININE 1.58 mg/dL (0.55-1.30); POTASSIUM 4.3 mmol/L (3.5-5.1); TOTAL BILIRUBIN 0.2 mg/dL (0.0-1.0)
[2018-01-16 07:31] LABS: BASOPHILS # (AUTO) 0.1 K/uL (0.0-0.2); BASOPHILS % (AUTO) 0.8 % (0.0-2.0); EOSINOPHILS # (AUTO) 0.6 K/uL (0.0-0.4); EOSINOPHILS % (AUTO) 7.5 % (0.0-4.0); HEMATOCRIT 34.3 % (36-54); HEMOGLOBIN 11.1 g/dL (14.0-18.0); LYMPHOCYTES # (AUTO) 2.1 K/uL (1.0-5.5); MEAN CORPUSCULAR HEMOGLOBIN 24 pg (27-31); MEAN CORPUSCULAR HGB CONC 32 % (32-36); MEAN CORPUSCULAR VOLUME 75 fL (79.0-98.0); MONOCYTES # (AUTO) 0.7 K/uL (0.0-1.0); NEUTROPHILS # (AUTO) 4.1 K/uL (1.8-7.7); NEUTROPHILS % (AUTO) 54.7 % (40.0-70.0); PLATELET COUNT (AUTO) 294 K/uL (130-430); RED BLOOD CELL COUNT(AUTO) 4.59 MIL/uL (4.2-6.2); RED CELL DISTRIBUTION WIDTH 16.7 % (9.0-15.0); WHITE BLOOD COUNT (AUTO) 7.6 K/uL (4.8-10.8)
--- NOTE | 2018-01-16 08:30 | NUR ---
OPENING NOTES, SEEN PT IN BED, PT IS ASLEEP, BREATHING EVEN AND UNLABORED. PT'S AT BEDSIDE. IV LOCK ON LEFT FA INTACT AND PATENT. PT IS CURRENTLY DISCONNECTED FROM IV FLUIDS. PT REFUSED TO BE CONNECTED. REGALADO CATH SECURED WITH A SECUREMENT DEVICE, REGALADO BAG AT FOOT OF BED, REGALADO DRAINAGE IS DARK YELLOW AT THIS TIME. OPENING NOTES, SAFETY PRECAUTION IN PLACE. CALL LIGHT IN REACH. BED IN LOW POSITION. BED ALARM ON , ENCOURAGED PT TO CALL FOR ASSIST AND PAIN MEDICATIONS. WILL CONT TO MONITOR.
[2018-01-16] MEDS: NACL 0.9% 1,000 ML IV SCH (08:45)
[2018-01-16 09:18] VITALS: BP_SYST 113
[2018-01-16] MEDS: SIMETHICONE 80 MG TAB.CHEW PO SCH ×3 (09:20→20:29)
[2018-01-16] MEDS: NEPHROVITE, (FOLIC ACID/VITAMIN B COMP W-C 1 TAB) PO SCH (09:20)
[2018-01-16] MEDS: SODIUM CHLORIDE 500 MG TABLET PO SCH ×3 (09:20→17:41)
[2018-01-16] MEDS: MULTIVITS,CA,MINERALS/IRON/FA 1 TABLET PO SCH (09:20)
[2018-01-16] MEDS: TAMSULOSIN HCL 0.4 MG CAP PO SCH ×2 (09:20→20:30)
[2018-01-16] MEDS: CARVEDILOL 6.25 MG TABLET (COREG) PO SCH ×2 (09:21→20:31)
--- NOTE | 2018-01-16 11:00 | NUR ---
PT IN BED, NO C/O PAIN, NO SOB, NO DISTRESS. WILL CONT TO MONITOR.
[2018-01-16] MEDS: traMADol HCL HCL 50 MG TABLET (ULTRAM) PO SCH (11:02)
[2018-01-16 11:18] VITALS: BP_SYST 119
[2018-01-16] MEDS ORDERED: LEVOFLOXACIN 500 MG/D5W 100 ML IV ONE (14:00)
--- NOTE | 2018-01-16 14:00 | NUR ---
PT IN BED, NO C./O PAIN, NO SOB, NO DISTRESS. REGALADO CATH DRAINING WELL. SAFETY PRECAUTION IN PLACE, WILL CONT TO MONITOR.
[2018-01-16 15:15] VITALS: BP_SYST 143
--- NOTE | 2018-01-16 16:52 | NUR ---
INFORMED DR SINGH THAT PT IS ALLERGIC TO CIPRO AND MD ORDERED LEVAQUIN WHICH IS OF THE SAME FAMILY. MD ORDERED TO STOP THE MEDICATION. PT INFORMED.
[2018-01-16] MEDS ORDERED: PIPERACILLIN/TAZO 2.25G/DEX-IS 50 ML IV SCH (18:00)
--- NOTE | 2018-01-16 18:10 | NUR ---
PAGED DR SINGH TO GET ORDER FOR CORTISONE STANDBY MEDICATION FOR ALLERGIC REACTION TO THE NEW MEDICATION ZOSYN. PT VERBALISED THAT HE IS AFRAID TO TAKE THE MEDICATION ZOSYN BECAUSE IT CAN CAUSE LETHAL REACTION. 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
--- NOTE | 2018-01-16 18:16 | NUR ---
Paged Dr. Ray dialed [phone], s/w Mandi.
--- NOTE | 2018-01-16 18:25 | NUR ---
DR SINGH CALLED BACK AND MADE AWARE THAT PT IS REQUESTING CORTISONE ON HAND WHILE GETTING ZOSYN. ORDERED TO RESUME ROCEPHIN AND PATRICE ZOSYN. ORDERS TRANSCRIBED AND CARRIED OUT.
--- NOTE | 2018-01-16 19:30 | NUR ---
CLOSING NOTES, PT HAS BEEN STABLE THE WHOLE SHIFT, GIVEN 1X ULTRAM FOR PAIN, RESUMED ANTIBIOTIC ROCEPHIN ORDERED THERE ARE ISSUES WITH THE NEW ORDERED ANTIBIOTICS. REGALADO HAS BEEN DRAINING WELL WITH ARNALDO URINE. URINE SAMPLE SENT FOR URINE CULTURE ORDERED. ENDORSED TO NIGHT SEVERO JAUREGUI.
[2018-01-16 20:14] VITALS: BP_SYST 141
--- NOTE | 2018-01-16 20:15 | NUR ---
ROCEPHIN 1 GM IVPB ADMINISTER ORDERED , PATIENT ALERT NO ALLERIC REACTION NOTED CHEST MOVEMENT SHALLOW ALSO SYMMETRICAL .
[2018-01-16] MEDS: cefTRIAXone 1 GM in D5W 50 ML IV SCH (20:29)
[2018-01-16] MEDS: ALLOPURINOL 300 MG TABLET (ZYLOPRIM) PO SCH (20:30)
--- NOTE | 2018-01-17 | NUR ---
REGALADO CATHETER FOR URINE PATENT FREE FLOW OF ARNALDO YELLOW COLOR URINE , ALSO STRAINING URINE FOR STONES NONE NOTED THIS HOUR .
[2018-01-17 01:16] VITALS: BP_SYST 118
[2018-01-17] MEDS: NACL 0.9% 1,000 ML IV SCH (02:25)
--- NOTE | 2018-01-17 02:26 | NUR ---
Patient Refusing IVF DR SAMANTHA DANIELSON IS AWARE .
--- NOTE | 2018-01-17 02:29 | NUR ---
Patient Resting this hour call feliz with patient , bed to low position safety measures effective / .
--- NOTE | 2018-01-17 06:04 | NUR ---
URINE STRAIN CONTINUED PATIENT AWAKE ALERT , NO STONES NOTED IN URINE .
[2018-01-17 08:17] VITALS: BP_SYST 142
--- NOTE | 2018-01-17 08:18 | NUR ---
Opening note Pt resting in bed, AAOx4 w/ no s/s of SOB and no c/o pain or discomfort at this time. Reviewed care plan w/ pt, pt hoping to be discharged today. Reviewed safety and care plan including continuation of sodium chloride tablets for hyponatremia. Safety and bed check completed, bed in low locked position with call light with in reach. Pt agrees to call for any assistance.
[2018-01-17] MEDS: CARVEDILOL 6.25 MG TABLET (COREG) PO SCH ×2 (08:30→20:13)
[2018-01-17] MEDS: TAMSULOSIN HCL 0.4 MG CAP PO SCH ×2 (08:30→20:13)
[2018-01-17] MEDS: MULTIVITS,CA,MINERALS/IRON/FA 1 TABLET PO SCH (08:30)
[2018-01-17] MEDS: NEPHROVITE, (FOLIC ACID/VITAMIN B COMP W-C 1 TAB) PO SCH (08:30)
[2018-01-17] MEDS: SODIUM CHLORIDE 500 MG TABLET PO SCH ×3 (08:30→19:40)
[2018-01-17] MEDS: SIMETHICONE 80 MG TAB.CHEW PO SCH ×3 (08:30→20:13)
--- NOTE | 2018-01-17 10:01 | NUR ---
Rounding pt sitting in bed talking on phone, no s/s of SOB or distress, no c/o pain or discomfort. Bed in low position, pt refuses bed alarm. Agrees to use call light to call for assistance.
--- NOTE | 2018-01-17 12:23 | NUR ---
Rounding pt sitting in bed eating lunch, no s/s of SOB or distress, no c/o pain or discomfort. Pt awaiting physician. Urine still deep thiago color in ward. Scheduled medications administered with no issues. Bed in low locked position, call alarm within reach.
[2018-01-17 12:28] VITALS: BP_SYST 133
--- NOTE | 2018-01-17 13:46 | NUR ---
Dietitian Recommendations * Recommend continuing regular diet per LP, RD Please refer to Nutrition Assessment for details.
--- NOTE | 2018-01-17 14:20 | NUR ---
Rounding pt resting in bed, breathing is even and unlabored. call light within reach
--- NOTE | 2018-01-17 16:00 | NUR ---
Rounding Pt resting, talking on phone. Indicates he doesn't need anything at this time.
[2018-01-17 16:30] VITALS: BP_SYST 148
[2018-01-17 17:55] LABS: BASOPHILS # (AUTO) 0.1 K/uL (0.0-0.2); BASOPHILS % (AUTO) 0.7 % (0.0-2.0); EOSINOPHILS # (AUTO) 0.5 K/uL (0.0-0.4); EOSINOPHILS % (AUTO) 6.3 % (0.0-4.0); HEMATOCRIT 35.8 % (36-54); HEMOGLOBIN 11.4 g/dL (14.0-18.0); LYMPHOCYTES # (AUTO) 2.3 K/uL (1.0-5.5); LYMPHOCYTES % (AUTO) 28.3 % (20.5-51.5); MEAN CORPUSCULAR HEMOGLOBIN 24 pg (27-31); MEAN CORPUSCULAR HGB CONC 32 % (32-36); MEAN CORPUSCULAR VOLUME 76 fL (79.0-98.0); MONOCYTES # (AUTO) 0.7 K/uL (0.0-1.0); MONOCYTES % (AUTO) 8.9 % (1.7-9.3); NEUTROPHILS # (AUTO) 4.4 K/uL (1.8-7.7); NEUTROPHILS % (AUTO) 55.8 % (40.0-70.0); PLATELET COUNT (AUTO) 354 K/uL (130-430); RED BLOOD CELL COUNT(AUTO) 4.74 MIL/uL (4.2-6.2); RED CELL DISTRIBUTION WIDTH 16.9 % (9.0-15.0)
--- NOTE | 2018-01-17 18:05 | NUR ---
Ward catheter removed Removed ward catheter per Dr Ray order (on unit). Pt reports slight burning. No /s of SOB or distress, no c/o pain or discomfort, overall. No other issues reported when asked.
[2018-01-17 18:09] LABS: CALCIUM 10.3 mg/dL (8.4-11.0); CREATININE 1.43 mg/dL (0.55-1.30); POTASSIUM 4.1 mmol/L (3.5-5.1)
[2018-01-17 19:42] VITALS: BP_SYST 146
--- NOTE | 2018-01-17 19:42 | NUR ---
Initial note: Received handoff report from dayshift RN at patient's bedside. Patient is awake sitting in chair at bedside, no signs or symptoms of acute distress noted. Patient is alert and oriented x4, ambulatory with steady gait. IV saline lock noted to patient's left forearm, site is patent and benign. Safety and fall precautions in place, call light is with patient. Will continue with plan of care.
[2018-01-17] MEDS: cefTRIAXone 1 GM in D5W 50 ML IV SCH (19:49)
--- NOTE | 2018-01-17 19:49 | NUR ---
Closing/Late medication administration Pt sitting in chair, talking with , no s/s of SOB or distress, late medication administration due to patient care in other rooms and discharges. Call light within reach
[2018-01-17] MEDS: ALLOPURINOL 300 MG TABLET (ZYLOPRIM) PO SCH (20:13)
--- NOTE | 2018-01-17 22:01 | NUR ---
Rounds: Patient is awake in bed, no signs or symptoms of acute distress noted. Safety and fall precautions in place. Call light is with patient, will continue to monitor.
--- NOTE | 2018-01-18 00:03 | NUR ---
Rounds: Patient is asleep, does not show signs or symptoms of acute distress. Breathing is even and unlabored. Safety and fall precautions remain in place. Will continue monitoring.
[2018-01-18 00:38] VITALS: BP_SYST 140
--- NOTE | 2018-01-18 02:06 | NUR ---
Rounds: Patient is in bed sleeping. No signs or symptoms of acute distress noted. Safety and fall precautions in place. Will continue to monitor.
--- NOTE | 2018-01-18 06:00 | NUR ---
Closing note: Patient is awake in bed, no signs or symptoms of acute distress noted. Safety and fall precautions remain in place. All needs met and attended to. Will endorse care to dayshift RN.
[2018-01-18 06:41] LABS: ALBUMIN 2.6 g/dL (3.4-4.8); CALCIUM 10.2 mg/dL (8.4-11.0); CREATININE 1.69 mg/dL (0.55-1.30); POTASSIUM 4.3 mmol/L (3.5-5.1); TOTAL BILIRUBIN 0.2 mg/dL (0.0-1.0)
[2018-01-18 08:00] VITALS: BP_SYST 139
--- NOTE | 2018-01-18 08:00 | NUR ---
RN OPENING NOTE PATIENT RESTING ON BED, ALERT ORIENTED X 4, PATIENT WAS ASSESSED, VITAL SIGNS ARE STABLE. PATIENT'S WAS SERVED HIS BREAKFAST. PATIENT DENIES PAIN FOR DISCOMFORT. BED AT LOW POSITION, BED ALARM ON, PATIENT ENCOURAGED TO CALL FOR ANY ISSUE,ON TELE. SR, WILL CONTINUE TO MONITOR.
[2018-01-18 08:06] LABS: BASOPHILS # (AUTO) 0.1 K/uL (0.0-0.2); BASOPHILS % (AUTO) 0.9 % (0.0-2.0); EOSINOPHILS # (AUTO) 0.5 K/uL (0.0-0.4); EOSINOPHILS % (AUTO) 6.6 % (0.0-4.0); HEMATOCRIT 34.7 % (36-54); HEMOGLOBIN 11.4 g/dL (14.0-18.0); LYMPHOCYTES # (AUTO) 2.1 K/uL (1.0-5.5); LYMPHOCYTES % (AUTO) 27.7 % (20.5-51.5); MEAN CORPUSCULAR HEMOGLOBIN 25 pg (27-31); MEAN CORPUSCULAR HGB CONC 33 % (32-36); MEAN CORPUSCULAR VOLUME 76 fL (79.0-98.0); MONOCYTES # (AUTO) 0.8 K/uL (0.0-1.0); MONOCYTES % (AUTO) 11.1 % (1.7-9.3); NEUTROPHILS % (AUTO) 53.7 % (40.0-70.0); PLATELET COUNT (AUTO) 303 K/uL (130-430); RED BLOOD CELL COUNT(AUTO) 4.59 MIL/uL (4.2-6.2); RED CELL DISTRIBUTION WIDTH 17.1 % (9.0-15.0); WHITE BLOOD COUNT (AUTO) 7.5 K/uL (4.8-10.8)
[2018-01-18] MEDS: SODIUM CHLORIDE 500 MG TABLET PO SCH ×2 (09:10→13:23)
[2018-01-18] MEDS: MULTIVITS,CA,MINERALS/IRON/FA 1 TABLET PO SCH (09:10)
[2018-01-18] MEDS: NEPHROVITE, (FOLIC ACID/VITAMIN B COMP W-C 1 TAB) PO SCH (09:10)
[2018-01-18] MEDS: TAMSULOSIN HCL 0.4 MG CAP PO SCH (09:10)
[2018-01-18] MEDS: CARVEDILOL 6.25 MG TABLET (COREG) PO SCH (09:11)
[2018-01-18] MEDS: SIMETHICONE 80 MG TAB.CHEW PO SCH ×2 (09:11→15:05)
--- NOTE | 2018-01-18 10:00 | NUR ---
RN NOTE PATIENT WAS GIVEN HIS P.O MEDICATIONS EXPLAINED THE INDICATIONS OF HIS MEDICATIONS WELL THEIR SIDE EFFECTS. PATIENT VERBALIZED UNDERSTANDING. DR. SINGH TO SEE THE PATIENT SOON. WILL CONTINUE TO MONITOR.
--- NOTE | 2018-01-18 12:00 | NUR ---
RN NOTE PATIENT WAS TOLD THAT HE WILL BE DISCHARGED AFTER 3 PM IN CASE HIS BMP CAME BACK WITH THE RESULT WILL BE CALLED TO DR. SINGH TO AGREE TO SEND THE PATENT HOME, PATIENT WAS EDUCATED ABOUT UTI PREVENTION, FALL PREVENTION, PATIENT VERBALIZED UNDERSTANDING. WILL CONTINUE TO MONITOR.
[2018-01-18 12:13] VITALS: BP_SYST 143
--- NOTE | 2018-01-18 14:00 | NUR ---
RN NOTE PATIENT WAS HELPED WALKING AROUND THE ROOM, TOLERATED VERY WELL. HELPED AMBULATED TO THE BATHROOM, PATIENT WILL COME OVER, PATIENT WAS EDUCATED ABOUT FALL PREVENTION AND HIS DISEASE PROCESS. ANTICIPATING DISCHARGING THE PATIENT TODAY, WILL CONTINUE TO MONITOR.
[2018-01-18 15:22] LABS: CALCIUM 10.6 mg/dL (8.4-11.0); CREATININE 1.46 mg/dL (0.55-1.30); POTASSIUM 4.2 mmol/L (3.5-5.1)
--- NOTE | 2018-01-18 16:00 | NUR ---
RN NOTE PATIENT BMP RESULT CAME BACK WITH IMPROVEMENT OF Na level to 135 from 134 and creatinine is now 1.46 down from 1.[address] Ray to get the discharge order as he instructed us. will continue to follow up.
[2018-01-18 16:10] VITALS: BP_SYST 132
--- NOTE | 2018-01-18 16:48 | NUR ---
ATTENDING MD DR WATTS WAS CALLED, RE: LAB RESULTS, DISCHARGE ORDER. SPOKE TO
[2018-01-18] MEDS: cefTRIAXone 1 GM in D5W 50 ML IV SCH (17:12)
[2018-01-18 17:47] VITALS: BP_SYST 132
--- NOTE | 2018-01-18 18:00 | NUR ---
RN CLOSING NOTE GOT AN ORDER FROM DR. SINGH TO D/C THE PATIENT HOME AFTER GIVING THE PATIENT HIS ROCEPHIN. PATIENT GOT HIS IVPB OF ANTIBIOTICS. PATIENT WAS GIVEN HIS DISCHARGE INSTRUCTION AND EDUCATION, VERBALIZED UNDERSTANDING, SALINE LOCK WAS REMOVED AND PATIENT WAS ESCORTED BY ME TO THE PARKING LOT WHERE HIS KELSY QUINTANA WILL DRIVE HIM BACK HOME, PATIENT GOT HIS PRESCRIPTION, AND WAS EDUCATED ABOUT HEMATURIA, HYPONATREMIA, IN ADDITION TO ILLUSTRATED PRINT OUT. WILL SIGN OF THE PATIENT , PATIENT LEFT THE HOSPITAL AT 1730 PM.
== END 2018-01-18 18:39 | disposition home or self-care (01) | DRG 699 ==
LOC: SED 12:46 → STU 15:31
PROVIDERS: ADMIT Internal Medicine; ATTEND Internal Medicine
DX: N99.89 Other postprocedural complications and disorders of genitourinary system (principal); N99.820 Postprocedural hemorrhage of a genitourinary system organ or structure following a genitourinary system procedure; N17.9 Acute kidney failure, unspecified; E87.1 Hypo-osmolality and hyponatremia; N39.0 Urinary tract infection, site not specified; I50.30 Unspecified diastolic (congestive) heart failure; I38 Endocarditis, valve unspecified; D62 Acute posthemorrhagic anemia; E44.0 Moderate protein-calorie malnutrition; I13.0 Hypertensive heart and chronic kidney disease with heart failure and stage 1 through stage 4 chronic kidney disease, or unspecified chronic kidney disease; K76.1 Chronic passive congestion of liver; N18.3 Chronic kidney disease, stage 3 (moderate); N20.0 Calculus of kidney; N13.9 Obstructive and reflux uropathy, unspecified; M10.9 Gout, unspecified; I35.1 Nonrheumatic aortic (valve) insufficiency; K21.9 Gastro-esophageal reflux disease without esophagitis; Y83.1 Surgical operation with implant of artificial internal device as the cause of abnormal reaction of the patient, or of later complication, without mention of misadventure at the time of the procedure; Y92.89 Other specified places as the place of occurrence of the external cause; Z82.49 Family history of ischemic heart disease and other diseases of the circulatory system; Z87.891 Personal history of nicotine dependence; Z87.442 Personal history of urinary calculi; Z88.1 Allergy status to other antibiotic agents; Z88.2 Allergy status to sulfonamides; Z90.49 Acquired absence of other specified parts of digestive tract; Z79.899 Other long term (current) drug therapy; Z68.27 Body mass index [BMI] 27.0-27.9, adult
CPT/HCPCS: 36415; 76700-TC; 80048; 80053; 80061; 81000-TC; 83690-TC; 83880; 84100-TC; 84550-TC; 85025; 85610-TC; 87086; 96374; 96375; 99285; J0696; J1940; J1956; J2405; J2543; J3010; J3370; J7030; J7050; J7060

== ENCOUNTER 2018-02-26 14:55 | Outpatient (CLI) | payer OTHER ==
[~2018-02-26 14:55] MED LIST changes: -ALLO300T2 PO; -AMLO2.5T2 PO; -AMOX-423 PO; -CARV6.2554 PO; -LISI10TA5 PO
[2018-02-26 15:52] LABS: ALBUMIN 3.3 g/dL (3.4-4.8); CALCIUM 10.8 mg/dL (8.4-11.0); CREATININE 1.34 mg/dL (0.55-1.30); POTASSIUM 3.7 mmol/L (3.5-5.1); TOTAL BILIRUBIN 0.3 mg/dL (0.0-1.0); URIC ACID 6.7 mg/dL (2.4-7.0)
[2018-02-26 16:04] LABS: BASOPHILS # (AUTO) 0.1 K/uL (0.0-0.2); BASOPHILS % (AUTO) 0.7 % (0.0-2.0); EOSINOPHILS # (AUTO) 0.4 K/uL (0.0-0.4); EOSINOPHILS % (AUTO) 4.7 % (0.0-4.0); HEMATOCRIT 39.9 % (36-54); HEMOGLOBIN 12.1 g/dL (14.0-18.0); LYMPHOCYTES # (AUTO) 2.2 K/uL (1.0-5.5); MEAN CORPUSCULAR HEMOGLOBIN 23 pg (27-31); MEAN CORPUSCULAR HGB CONC 31 % (32-36); MEAN CORPUSCULAR VOLUME 74 fL (79.0-98.0); MONOCYTES # (AUTO) 0.6 K/uL (0.0-1.0); MONOCYTES % (AUTO) 7.2 % (1.7-9.3); NEUTROPHILS # (AUTO) 4.8 K/uL (1.8-7.7); NEUTROPHILS % (AUTO) 60.4 % (40.0-70.0); PLATELET COUNT (AUTO) 383 K/uL (130-430); RED BLOOD CELL COUNT(AUTO) 5.36 MIL/uL (4.2-6.2); RED CELL DISTRIBUTION WIDTH 16.4 % (9.0-15.0); WHITE BLOOD COUNT (AUTO) 8.1 K/uL (4.8-10.8)
[2018-02-27 08:24] LABS: PROSTATE SPECIFIC AG 4.2 ng/mL (0.0-4.0)
== END 2018-02-26 19:55 | disposition home or self-care (01) ==
LOC: SLB 14:55
PROVIDERS: ATTEND Internal Medicine
DX: Z12.5 Encounter for screening for malignant neoplasm of prostate (principal); M10.9 Gout, unspecified; I13.0 Hypertensive heart and chronic kidney disease with heart failure and stage 1 through stage 4 chronic kidney disease, or unspecified chronic kidney disease; N18.9 Chronic kidney disease, unspecified; I50.9 Heart failure, unspecified
CPT/HCPCS: 36415; 80053; 82607; 83880; 84550; 85025; G0103

== ENCOUNTER 2018-07-02 16:25 | Outpatient (CLI) | payer OTHER ==
[2018-07-02 17:12] LABS: BASOPHILS # (AUTO) 0.1 K/uL (0.0-0.2); BASOPHILS % (AUTO) 1.1 % (0.0-2.0); EOSINOPHILS # (AUTO) 0.3 K/uL (0.0-0.4); EOSINOPHILS % (AUTO) 3.9 % (0.0-4.0); HEMATOCRIT 43.1 % (36-54); HEMOGLOBIN 13.4 g/dL (14.0-18.0); LYMPHOCYTES # (AUTO) 1.9 K/uL (1.0-5.5); LYMPHOCYTES % (AUTO) 25.5 % (20.5-51.5); MEAN CORPUSCULAR HEMOGLOBIN 22 pg (27-31); MEAN CORPUSCULAR HGB CONC 31 % (32-36); MEAN CORPUSCULAR VOLUME 71 fL (79.0-98.0); MONOCYTES # (AUTO) 0.6 K/uL (0.0-1.0); MONOCYTES % (AUTO) 8.4 % (1.7-9.3); NEUTROPHILS # (AUTO) 4.7 K/uL (1.8-7.7); NEUTROPHILS % (AUTO) 61.1 % (40.0-70.0); PLATELET COUNT (AUTO) 365 K/uL (130-430); RED BLOOD CELL COUNT(AUTO) 6.06 MIL/uL (4.2-6.2); RED CELL DISTRIBUTION WIDTH 18.3 % (9.0-15.0); WHITE BLOOD COUNT (AUTO) 7.6 K/uL (4.8-10.8)
[2018-07-02 17:34] LABS: ALBUMIN 3.2 g/dL (3.4-4.8); CREATININE 1.71 mg/dL (0.55-1.30); POTASSIUM 3.9 mmol/L (3.5-5.1); THYROID STIMULATING HORMONE 2.26 uIu/mL (0.34-4.82); TOTAL BILIRUBIN 0.3 mg/dL (0.0-1.0); URIC ACID 5.4 mg/dL (2.4-7.0)
[2018-07-03 04:06] LABS: HEMOGLOBIN A1C 5.5 % (4.8-5.6)
[2018-07-03 09:58] LABS: PROSTATE SPECIFIC AG 4.7 ng/mL (0.0-4.0)
== END 2018-07-02 21:27 | disposition home or self-care (01) ==
LOC: SLB 16:25
PROVIDERS: ATTEND Internal Medicine
DX: Z12.5 Encounter for screening for malignant neoplasm of prostate (principal)
CPT/HCPCS: 36415; 80053; 80061; 82306; 82607; 83036; 83880; 84443; 84550; 85025; G0103

== ENCOUNTER 2019-05-15 00:11 | Emergency (ER) | payer OTHER ==
[~2019-05-15] VITALS: Ht 165.1 cm; Wt 75.7 kg
[2019-05-15 00:15] VITALS: BP_SYST 146
--- NOTE | 2019-05-15 00:15 | NUR ---
Patient triaged and placed in waiting room. VSS and patient appears in no acute distress at this time. Accompanied by FAM MEMBER, awaiting available bed, and MD notified of need for MSE.
--- NOTE | 2019-05-15 01:57 | NUR ---
Patient to ER bed 6 to gown for evaluation. Side rails up. Report given to SILVERIO ELKINS.
--- NOTE | 2019-05-15 01:57 | NUR ---
Pt c/o pain to ribs beneath right pectoris. Pt states that he slipped and fell onto the floor and feels like he "cracked" his ribs. Pt states that he cannot take a deep breath r/t pain. Skin intact, no bruising or discoloration to site, no deformities noted. No respiratory distress.
--- NOTE | 2019-05-15 02:15 | NUR ---
Dr. Llanos at bedside.
[2019-05-15] MEDS ORDERED: MORPHINE 4 MG/ML INJ. SYRINGE IM ONE (03:15)
--- NOTE | 2019-05-15 03:15 | NUR ---
No needs verbalized at this time.
[2019-05-15 04:20] VITALS: BP_SYST 132
--- NOTE | 2019-05-15 04:20 | NUR ---
Patient given written and verbal discharge instructions and verbalizes understanding. ER MD discussed with patient the results and treatment provided. Patient in stable condition. ID arm band removed. Rx of [place] and Ibuprofen given. Patient educated on pain management and to follow up with PMD. Pain Scale 3/10. Opportunity for questions provided and answered. Medication side effect fact sheet provided.
[2019-05-15 04:43] LABS: CALCIUM 10.2 mg/dL (8.4-11.0); CREATININE 1.94 mg/dL (0.55-1.30); POTASSIUM 4.4 mmol/L (3.5-5.1)
[2019-05-15 04:48] LABS: ALBUMIN 3.5 g/dL (3.4-4.8); TOTAL BILIRUBIN 0.3 mg/dL (0.0-1.0)
== END 2019-05-15 04:20 | disposition home or self-care (01) ==
LOC: SED 00:11
DX: R07.81 Pleurodynia (principal); K21.9 Gastro-esophageal reflux disease without esophagitis; I10 Essential (primary) hypertension; Z88.2 Allergy status to sulfonamides; Z88.1 Allergy status to other antibiotic agents; W01.198A Fall on same level from slipping, tripping and stumbling with subsequent striking against other object, initial encounter; Y93.89 Activity, other specified; Y92.098 Other place in other non-institutional residence as the place of occurrence of the external cause; Y99.8 Other external cause status
CPT/HCPCS: 36415; 71045; 71100; 80053; 96372; 99284; J2270

== ENCOUNTER 2019-05-30 13:56 | Outpatient (CLI) | payer OTHER ==
[2019-05-30 14:45] LABS: BASOPHILS # (AUTO) 0.1 K/uL (0.0-0.2); BASOPHILS % (AUTO) 0.9 % (0.0-2.0); EOSINOPHILS # (AUTO) 0.5 K/uL (0.0-0.4); EOSINOPHILS % (AUTO) 5.3 % (0.0-4.0); HEMATOCRIT 41.1 % (36-54); HEMOGLOBIN 13.2 g/dL (14.0-18.0); LYMPHOCYTES # (AUTO) 2.2 K/uL (1.0-5.5); LYMPHOCYTES % (AUTO) 24.9 % (20.5-51.5); MEAN CORPUSCULAR HEMOGLOBIN 24 pg (27-31); MEAN CORPUSCULAR HGB CONC 32 % (32-36); MEAN CORPUSCULAR VOLUME 75 fL (79.0-98.0); MONOCYTES # (AUTO) 0.7 K/uL (0.0-1.0); MONOCYTES % (AUTO) 7.5 % (1.7-9.3); NEUTROPHILS # (AUTO) 5.4 K/uL (1.8-7.7); NEUTROPHILS % (AUTO) 61.4 % (40.0-70.0); PLATELET COUNT (AUTO) 295 K/uL (130-430); RED BLOOD CELL COUNT(AUTO) 5.44 MIL/uL (4.2-6.2); RED CELL DISTRIBUTION WIDTH 17.3 % (9.0-15.0); WHITE BLOOD COUNT (AUTO) 8.8 K/uL (4.8-10.8)
[2019-05-30 15:00] LABS: BILIRUBIN,URINE NEGATIVE (NEGATIVE); CLARITY/URINE CLEAR (CLEAR); COLOR,URINE YELLOW (YELLOW); GLUCOSE,URINE NEGATIVE (NEGATIVE); KETONES,URINE NEGATIVE (NEGATIVE); LEUKOCYTE ESTERASE ,URINE NEGATIVE (NEGATIVE); NITRITE, URINE NEGATIVE (NEGATIVE); PH,URINE 5.5 (5.0-8.0); PROTEIN URINE 3+ (NEGATIVE); UROBILINOGEN,URINE 0.2 (0.2-1.0)
[2019-05-30 15:05] LABS: BLOOD, URINE TRACE (NEGATIVE)
[2019-05-30 15:12] LABS: ALBUMIN 3.5 g/dL (3.4-4.8); CALCIUM 10.4 mg/dL (8.4-11.0); CREATININE 1.91 mg/dL (0.55-1.30); POTASSIUM 4.3 mmol/L (3.5-5.1); TOTAL BILIRUBIN 0.3 mg/dL (0.0-1.0); URIC ACID 8.6 mg/dL (2.4-7.0)
[2019-05-30 15:22] LABS: ERYTHROCYTE SEDIMENTATION RATE 73 MM/HR (0-15)
[2019-05-30 15:51] LABS: THYROID STIMULATING HORMONE 5.06 uIu/mL (0.36-3.74)
[2019-05-30 16:14] LABS: BACTERIA,URINE RARE /HPF (None Seen); RBC,URINE 0-3 /HPF (0-3); WBC,URINE NONE SEEN /HPF (0-3)
[2019-05-30 16:15] LABS: MUCUS,URINE None Seen /LPF (None Seen)
[2019-05-31 04:06] LABS: HEMOGLOBIN A1C 5.4 % (4.8-5.6)
[2019-05-31 08:06] LABS: PROSTATE SPECIFIC AG 3.7 ng/mL (0.0-4.0)
== END 2019-05-30 18:31 | disposition home or self-care (01) ==
LOC: SLB 13:56
PROVIDERS: ATTEND Internal Medicine
DX: M17.0 Bilateral primary osteoarthritis of knee (principal); I13.0 Hypertensive heart and chronic kidney disease with heart failure and stage 1 through stage 4 chronic kidney disease, or unspecified chronic kidney disease; E55.9 Vitamin D deficiency, unspecified; M10.9 Gout, unspecified; E78.5 Hyperlipidemia, unspecified; R73.9 Hyperglycemia, unspecified; N18.9 Chronic kidney disease, unspecified
CPT/HCPCS: 36415; 80053; 80061; 81000-TC; 82306; 82607; 83036; 83880; 84153; 84443-TC; 84550-TC; 85025; 85651-TC

== ENCOUNTER 2020-08-17 16:26 | Outpatient (CLI) | payer OTHER ==
[2020-08-17 17:14] LABS: BILIRUBIN,URINE NEGATIVE (NEGATIVE); COLOR,URINE YELLOW (YELLOW); GLUCOSE,URINE NEGATIVE (NEGATIVE); KETONES,URINE NEGATIVE (NEGATIVE); LEUKOCYTE ESTERASE ,URINE NEGATIVE (NEGATIVE); NITRITE, URINE NEGATIVE (NEGATIVE); PH,URINE 5.5 (5.0-8.0); PROTEIN URINE 3+ (NEGATIVE); UROBILINOGEN,URINE 0.2 (0.2-1.0)
[2020-08-17 17:21] LABS: BLOOD, URINE TRACE (NEGATIVE); CLARITY/URINE HAZY (CLEAR)
[2020-08-17 17:23] LABS: BASOPHILS # (AUTO) 0.1 K/uL (0.0-0.2); BASOPHILS % (AUTO) 0.7 % (0.0-2.0); EOSINOPHILS # (AUTO) 0.3 K/uL (0.0-0.4); EOSINOPHILS % (AUTO) 3.8 % (0.0-4.0); HEMATOCRIT 40.8 % (36-54); HEMOGLOBIN 13.6 g/dL (14.0-18.0); LYMPHOCYTES # (AUTO) 2.3 K/uL (1.0-5.5); LYMPHOCYTES % (AUTO) 24.9 % (20.5-51.5); MEAN CORPUSCULAR HEMOGLOBIN 25 pg (27-31); MEAN CORPUSCULAR HGB CONC 33 % (32-36); MEAN CORPUSCULAR VOLUME 74 fL (79.0-98.0); MONOCYTES # (AUTO) 0.7 K/uL (0.0-1.0); NEUTROPHILS # (AUTO) 5.8 K/uL (1.8-7.7); NEUTROPHILS % (AUTO) 62.6 % (40.0-70.0); PLATELET COUNT (AUTO) 325 K/uL (130-430); RED BLOOD CELL COUNT(AUTO) 5.51 MIL/uL (4.2-6.2); RED CELL DISTRIBUTION WIDTH 16.1 % (9.0-15.0); WHITE BLOOD COUNT (AUTO) 9.2 K/uL (4.8-10.8)
[2020-08-17 18:02] LABS: ERYTHROCYTE SEDIMENTATION RATE 70 MM/HR (0-15); RBC,URINE 0-3 /HPF (0-3)
[2020-08-17 18:03] LABS: BACTERIA,URINE FEW /HPF (None Seen); COARSE GRANULAR CASTS,URINE 0-10 /LPF (None Seen); FINE GRANULAR CASTS,URINE 0-10 /LPF (None Seen); MUCUS,URINE 2+ /LPF (None Seen); WBC,URINE 0-3 /HPF (0-3)
[2020-08-17 19:18] LABS: CALCIUM 10.2 mg/dL (8.4-11.0); POTASSIUM 5.2 mmol/L (3.5-5.1)
[2020-08-17 19:19] LABS: ALBUMIN 3.6 g/dL (3.4-4.8); CREATININE 2.62 mg/dL (0.55-1.30); TOTAL BILIRUBIN 0.2 mg/dL (0.0-1.0)
[2020-08-17 19:20] LABS: THYROID STIMULATING HORMONE 2.36 uIu/mL (0.36-3.74)
[2020-08-17 19:28] LABS: C-REACTIVE PROTEIN QUANT 0.3 mg/dL (0-0.5)
[2020-08-19 03:06] LABS: HEMOGLOBIN A1C 5.4 % (4.8-5.6)
== END 2020-08-17 20:42 | disposition home or self-care (01) ==
LOC: SLB 16:26
PROVIDERS: ATTEND Internal Medicine
DX: Z00.01 Encounter for general adult medical examination with abnormal findings (principal); I10 Essential (primary) hypertension; N20.0 Calculus of kidney
CPT/HCPCS: 36415; 80053; 80061; 81000-TC; 82306; 82607; 83036; 84153; 84443-TC; 84550-TC; 85025; 85651-TC; 86140

== ENCOUNTER 2020-09-21 08:50 | Outpatient (CLI) | payer OTHER | END 2020-09-21 20:32 | disposition home or self-care (01) | LOC: SUS 08:50 | PROVIDERS: ATTEND Internal Medicine | DX: N28.1 Cyst of kidney, acquired (principal); R22.1 Localized swelling, mass and lump, neck | CPT/HCPCS: 76770 ==

== ENCOUNTER 2020-09-28 11:41 | Outpatient (CLI) | payer OTHER | END 2020-09-28 21:09 | disposition home or self-care (01) | LOC: SMI 11:41 | PROVIDERS: ATTEND Internal Medicine | DX: E04.9 Nontoxic goiter, unspecified (principal); R22.1 Localized swelling, mass and lump, neck | CPT/HCPCS: 70540 ==

== ENCOUNTER 2020-10-30 13:19 | Outpatient (CLI) | payer OTHER | END 2020-10-30 19:07 | disposition short-term general hospital (02) | LOC: SUS 13:19 | PROVIDERS: ATTEND Urology | DX: E04.1 Nontoxic single thyroid nodule (principal) | CPT/HCPCS: 76536-TC ==

== ENCOUNTER 2020-12-08 12:49 | Outpatient (CLI) | payer OTHER ==
[2020-12-08 13:45] LABS: BILIRUBIN,URINE NEGATIVE (NEGATIVE); COLOR,URINE YELLOW (YELLOW); GLUCOSE,URINE NEGATIVE (NEGATIVE); KETONES,URINE NEGATIVE (NEGATIVE); LEUKOCYTE ESTERASE ,URINE NEGATIVE (NEGATIVE); NITRITE, URINE NEGATIVE (NEGATIVE); PH,URINE 5.5 (5.0-8.0); PROTEIN URINE 3+ (NEGATIVE); UROBILINOGEN,URINE 0.2 (0.2-1.0)
[2020-12-08 14:14] LABS: TOTAL IRON BIND. CAPACITY 299 ug/dL (250-450)
[2020-12-08 14:17] LABS: BASOPHILS % (AUTO) 0.8 % (0.0-2.0); EOSINOPHILS # (AUTO) 0.3 K/uL (0.0-0.4); HEMATOCRIT 39.4 % (36-54); HEMOGLOBIN 12.6 g/dL (14.0-18.0); LYMPHOCYTES # (AUTO) 1.7 K/uL (1.0-5.5); LYMPHOCYTES % (AUTO) 27.7 % (20.5-51.5); MEAN CORPUSCULAR HEMOGLOBIN 24 pg (27-31); MEAN CORPUSCULAR HGB CONC 32 % (32-36); MEAN CORPUSCULAR VOLUME 74 fL (79.0-98.0); MONOCYTES # (AUTO) 0.5 K/uL (0.0-1.0); MONOCYTES % (AUTO) 7.6 % (1.7-9.3); NEUTROPHILS # (AUTO) 3.7 K/uL (1.8-7.7); NEUTROPHILS % (AUTO) 58.9 % (40.0-70.0); PLATELET COUNT (AUTO) 260 K/uL (130-430); RED BLOOD CELL COUNT(AUTO) 5.33 MIL/uL (4.2-6.2); RED CELL DISTRIBUTION WIDTH 16.3 % (9.0-15.0); WHITE BLOOD COUNT (AUTO) 6.3 K/uL (4.8-10.8)
[2020-12-08 14:33] LABS: CALCIUM 10.5 mg/dL (8.4-11.0); CREATININE 2.66 mg/dL (0.55-1.30); POTASSIUM 5.5 mmol/L (3.5-5.1); TOTAL BILIRUBIN 0.3 mg/dL (0.0-1.0)
[2020-12-08 14:34] LABS: ALBUMIN 3.2 g/dL (3.4-4.8); PHOSPHORUS 3.7 mg/dL (2.7-4.5); URIC ACID 9.3 mg/dL (2.4-7.0)
[2020-12-08 14:35] LABS: BLOOD, URINE TRACE (NEGATIVE); CLARITY/URINE SLIGHTLY HAZY (CLEAR)
[2020-12-08 15:08] LABS: BACTERIA,URINE FEW /HPF (None Seen); RBC,URINE 0-3 /HPF (0-3); WBC,URINE 0-3 /HPF (0-3)
[2020-12-09 06:06] LABS: HEMOGLOBIN A1C 5.6 % (4.8-5.6)
[2020-12-09 08:06] LABS: FERRITIN 81 ng/mL (30-400); FOLATE (FOLIC ACID) >20.0 ng/mL (>3.0); PTH, INTACT 44 pg/mL (15-65)
== END 2020-12-08 20:18 | disposition home or self-care (01) ==
LOC: SLB 12:49
PROVIDERS: ATTEND Internal Medicine
DX: Z12.5 Encounter for screening for malignant neoplasm of prostate (principal); I12.9 Hypertensive chronic kidney disease with stage 1 through stage 4 chronic kidney disease, or unspecified chronic kidney disease; N18.30 Chronic kidney disease, stage 3 unspecified; R80.9 Proteinuria, unspecified; D51.9 Vitamin B12 deficiency anemia, unspecified; R73.03 Prediabetes; E61.1 Iron deficiency; E78.5 Hyperlipidemia, unspecified; D64.9 Anemia, unspecified; M10.9 Gout, unspecified
CPT/HCPCS: 36415; 80053; 80061; 81000; 82043; 82306; 82550; 82570; 82607; 82728; 82746; 83036; 83540; 83550; 83735; 83970; 84100; 84153; 84550; 85025

== ENCOUNTER 2020-12-30 10:39 | Outpatient (CLI) | payer OTHER ==
[2020-12-30 11:22] LABS: ALBUMIN 3.1 g/dL (3.4-4.8); CALCIUM 10.6 mg/dL (8.4-11.0); CREATININE 2.55 mg/dL (0.55-1.30); POTASSIUM 5.5 mmol/L (3.5-5.1); TOTAL BILIRUBIN 0.4 mg/dL (0.0-1.0)
== END 2020-12-30 20:57 | disposition home or self-care (01) ==
LOC: SLB 10:39
PROVIDERS: ATTEND Internal Medicine
DX: N20.0 Calculus of kidney (principal); N28.1 Cyst of kidney, acquired; K76.89 Other specified diseases of liver; N18.30 Chronic kidney disease, stage 3 unspecified; Z90.49 Acquired absence of other specified parts of digestive tract
CPT/HCPCS: 36415; 76376; 80053

== ENCOUNTER → 2021-01-04 | Outpatient (CLI) | payer OTHER ==
[2021-01-04 15:08] LABS: ALBUMIN 3.2 g/dL (3.4-4.8); CALCIUM 10.3 mg/dL (8.4-11.0); CREATININE 2.82 mg/dL (0.55-1.30); PHOSPHORUS 3.9 mg/dL (2.7-4.5); POTASSIUM 5.2 mmol/L (3.5-5.1); TOTAL BILIRUBIN 0.4 mg/dL (0.0-1.0); URIC ACID 5.8 mg/dL (2.4-7.0)
[2021-01-04 15:25] LABS: BASOPHILS % (AUTO) 0.5 % (0.0-2.0); EOSINOPHILS # (AUTO) 0.3 K/uL (0.0-0.4); EOSINOPHILS % (AUTO) 3.6 % (0.0-4.0); HEMATOCRIT 37.3 % (36-54); LYMPHOCYTES # (AUTO) 2.2 K/uL (1.0-5.5); LYMPHOCYTES % (AUTO) 29.1 % (20.5-51.5); MEAN CORPUSCULAR HEMOGLOBIN 24 pg (27-31); MEAN CORPUSCULAR HGB CONC 32 % (32-36); MEAN CORPUSCULAR VOLUME 75 fL (79.0-98.0); MONOCYTES # (AUTO) 0.5 K/uL (0.0-1.0); MONOCYTES % (AUTO) 6.7 % (1.7-9.3); NEUTROPHILS # (AUTO) 4.5 K/uL (1.8-7.7); NEUTROPHILS % (AUTO) 60.1 % (40.0-70.0); PLATELET COUNT (AUTO) 297 K/uL (130-430); RED CELL DISTRIBUTION WIDTH 16.3 % (9.0-15.0); WHITE BLOOD COUNT (AUTO) 7.5 K/uL (4.8-10.8)
[2021-01-04 17:16] LABS: BILIRUBIN,URINE NEGATIVE (NEGATIVE); CLARITY/URINE CLEAR (CLEAR); COLOR,URINE YELLOW (YELLOW); GLUCOSE,URINE NEGATIVE (NEGATIVE); KETONES,URINE NEGATIVE (NEGATIVE); LEUKOCYTE ESTERASE ,URINE NEGATIVE (NEGATIVE); NITRITE, URINE NEGATIVE (NEGATIVE); PH,URINE 5.5 (5.0-8.0); PROTEIN URINE 2+ (NEGATIVE); UROBILINOGEN,URINE 0.2 (0.2-1.0)
[2021-01-04 17:29] LABS: BLOOD, URINE TRACE (NEGATIVE)
[2021-01-04 17:45] LABS: BACTERIA,URINE FEW /HPF (None Seen); COARSE GRANULAR CASTS,URINE 0-10 /LPF (None Seen); MUCUS,URINE None Seen /LPF (None Seen); RBC,URINE 0-3 /HPF (0-3); WBC,URINE 0-3 /HPF (0-3)
== END | disposition home or self-care (01) ==
LOC: SLB 12:50
PROVIDERS: ATTEND Internal Medicine
DX: I12.9 Hypertensive chronic kidney disease with stage 1 through stage 4 chronic kidney disease, or unspecified chronic kidney disease (principal); N18.30 Chronic kidney disease, stage 3 unspecified; N20.0 Calculus of kidney; E55.9 Vitamin D deficiency, unspecified
CPT/HCPCS: 36415; 80053; 81000; 82306; 84100; 84550; 85025

== ENCOUNTER 2021-02-05 12:20 | Outpatient (CLI) | payer OTHER ==
[2021-02-05 13:11] LABS: BILIRUBIN,URINE NEGATIVE (NEGATIVE); COLOR,URINE YELLOW (YELLOW); GLUCOSE,URINE NEGATIVE (NEGATIVE); KETONES,URINE NEGATIVE (NEGATIVE); LEUKOCYTE ESTERASE ,URINE NEGATIVE (NEGATIVE); NITRITE, URINE NEGATIVE (NEGATIVE); PROTEIN URINE 3+ (NEGATIVE); UROBILINOGEN,URINE 0.2 (0.2-1.0)
[2021-02-05 13:26] LABS: ALBUMIN 3.1 g/dL (3.4-4.8); CALCIUM 10.1 mg/dL (8.4-11.0); CREATININE 2.34 mg/dL (0.55-1.30); PHOSPHORUS 3.3 mg/dL (2.7-4.5); POTASSIUM 5.1 mmol/L (3.5-5.1); TOTAL BILIRUBIN 0.3 mg/dL (0.0-1.0); URIC ACID 3.7 mg/dL (2.4-7.0)
[2021-02-05 13:44] LABS: BLOOD, URINE TRACE (NEGATIVE); CLARITY/URINE SLIGHTLY HAZY (CLEAR)
[2021-02-05 13:46] LABS: BACTERIA,URINE FEW /HPF (None Seen); MUCUS,URINE 1+ /LPF (None Seen); RBC,URINE NONE SEEN /HPF (0-3); WBC,URINE 0-3 /HPF (0-3)
[2021-02-05 13:54] LABS: EOSINOPHILS # (AUTO) 0.3 K/uL (0.0-0.4); HEMATOCRIT 35.1 % (36-54); HEMOGLOBIN 11.2 g/dL (14.0-18.0); LYMPHOCYTES # (AUTO) 1.5 K/uL (1.0-5.5); LYMPHOCYTES % (AUTO) 22.7 % (20.5-51.5); MEAN CORPUSCULAR HEMOGLOBIN 24 pg (27-31); MEAN CORPUSCULAR HGB CONC 32 % (32-36); MEAN CORPUSCULAR VOLUME 76 fL (79.0-98.0); MONOCYTES # (AUTO) 0.5 K/uL (0.0-1.0); MONOCYTES % (AUTO) 6.9 % (1.7-9.3); PLATELET COUNT (AUTO) 286 K/uL (130-430); RED BLOOD CELL COUNT(AUTO) 4.63 MIL/uL (4.2-6.2); RED CELL DISTRIBUTION WIDTH 18.6 % (9.0-15.0); WHITE BLOOD COUNT (AUTO) 6.7 K/uL (4.8-10.8)
[2021-02-05 14:01] LABS: NEUTROPHILS % (AUTO) 66.2 % (40.0-70.0)
[2021-02-05 14:02] LABS: BASOPHILS % (AUTO) 0.2 % (0.0-2.0); NEUTROPHILS # (AUTO) 4.5 K/uL (1.8-7.7)
== END 2021-02-05 19:01 | disposition home or self-care (01) ==
LOC: SLB 12:20
PROVIDERS: ATTEND Internal Medicine
DX: I13.0 Hypertensive heart and chronic kidney disease with heart failure and stage 1 through stage 4 chronic kidney disease, or unspecified chronic kidney disease (principal); N18.30 Chronic kidney disease, stage 3 unspecified; R31.9 Hematuria, unspecified; R33.0 Drug induced retention of urine; E87.1 Hypo-osmolality and hyponatremia; N17.9 Acute kidney failure, unspecified; N20.0 Calculus of kidney; I50.9 Heart failure, unspecified; M10.9 Gout, unspecified; R73.9 Hyperglycemia, unspecified
CPT/HCPCS: 36415; 80053; 81000; 82306; 83970; 84100; 84550; 85025